=== PATIENT | male | born 1970 | race Caucasian/White ===

== ENCOUNTER → 2017-05-12 16:33 | Outpatient (CLI) | payer BC, SELFPAY ==
[2017-05-12 18:10] LABS: Absolute Lymphocyte Count 1.16 X10^3/ul (0.83-4.51); Absolute Neutrophil Count 1.9 X10^3/uL (2.0-7.7); Basophil# 0.04 X10^3/uL; Basophil% 1.1 % (0-1); Eosinophil# 0.12 X10^3/uL; Eosinophils% 3.4 % (0-5); Hematocrit 38.4 % (40-54); Hemoglobin 12.1 g/dl (13.0-16.5); Lymphocyte # 1.16 X10^3/ul (4.0); Lymphocyte % 33.2 % (19-41); Mean Corp Hgb Conc 31.5 g/gl (32-36); Mean Corpuscular Hgb 26.8 pg (27.0-32.0); Mean Corpuscular Volume 85.1 fL (80-94); Mean Platelet Vol. 9.6 fl (6.2-12.0); Monocyte# 0.27 X10^3/uL; Monocyte% 7.7 % (0-10); Neutrophil % 54.6 % (47-70); Platelet Count 227 K/mm3 (150-450); RBC Distribution Width CV 13.5 % (11.6-14.6); Red Blood Count 4.51 M/mm3 (4.6-6.2); White Blood Count 3.5 K/mm3 (4.4-11.0)
[2017-05-12 18:11] LABS: ALB/GLOB Ratio 1.2 RATIO (0.9-2.4); AST(SGOT) 34 U/L (15-37); Alanine Aminotransfer ALT/SGPT 40 U/L (16-61); Albumin, Serum 3.8 g/dL (3.2-5.0); Alkaline Phosphatase 54 U/L (45-117); Anion Gap 6 (5-15); BUN 9 mg/dL (7-18); BUN/Creat Ratio 8.4 RATIO (10-20); Calcium,Total 8.8 mg/dL (8.5-10.1); Chloride 103 mmol/L (98-107); Creatinine, Serum 1.07 mg/dL (0.70-1.30); EST Glomerular Filtration Rate 79 mL/min (>60); Est Glom Filt Rate - Afr Amer 95 mL/min (>60); Globulin 3.2 g/dL (2.2-4.2); Glucose 90 mg/dL (74-106); Potassium 3.7 mmol/L (3.5-5.1); Sodium Level 138 mmol/L (136-145)
[2017-05-12 18:15] LABS: POSITIVE COUNT NO; POSITIVE DIFFERENTIAL NO; POSITIVE MORPHOLOGY NO
== END ==
PROVIDERS: Family Provider Family Medicine; PCP Family Medicine; Visit Provider Internal Medicine Rheumatology
DX: M06.09 Rheumatoid arthritis without rheumatoid factor, multiple sites (principal); Z79.899 Other long term (current) drug therapy; H35.30 Unspecified macular degeneration; R76.8 Other specified abnormal immunological findings in serum; Z87.11 Personal history of peptic ulcer disease; M21.40 Flat foot [pes planus] (acquired), unspecified foot; Z85.9 Personal history of malignant neoplasm, unspecified
CPT/HCPCS: 36415; 80053; 85025

== ENCOUNTER → 2017-05-14 16:21 | Outpatient (CLI) | payer BC, SELFPAY ==
[2017-05-18 03:06] LABS: QNTFERON TB Ag Minus Nil Value 0.43 IU/mL (.); QNTFERON TB Mitogen Value 5.63 IU/mL (.); QNTFERON TB Nil Value 0.07 IU/mL (.)
[2017-05-18 08:53] LABS: QNTIFERON TB Gold Positive (Negative)
== END ==
PROVIDERS: Family Provider Family Medicine; PCP Family Medicine; Visit Provider Internal Medicine Rheumatology
DX: M06.09 Rheumatoid arthritis without rheumatoid factor, multiple sites (principal); Z79.899 Other long term (current) drug therapy; H35.30 Unspecified macular degeneration; R76.8 Other specified abnormal immunological findings in serum; Z87.11 Personal history of peptic ulcer disease; M21.40 Flat foot [pes planus] (acquired), unspecified foot; Z85.9 Personal history of malignant neoplasm, unspecified
CPT/HCPCS: 36415; 86480

== ENCOUNTER → 2017-08-04 15:52 | Outpatient (CLI) | payer BC, SELFPAY ==
[2017-08-04 17:59] LABS: Absolute Lymphocyte Count 0.98 X10^3/ul (0.83-4.51); Absolute Neutrophil Count 5.3 X10^3/uL (2.0-7.7); Basophil# 0.03 X10^3/uL; Basophil% 0.4 % (0-1); Eosinophil# 0.04 X10^3/uL; Eosinophils% 0.6 % (0-5); Hematocrit 38.3 % (40-54); Hemoglobin 12.3 g/dl (13.0-16.5); Lymphocyte # 0.98 X10^3/ul (4.0); Lymphocyte % 14.1 % (19-41); Mean Corp Hgb Conc 32.1 g/gl (32-36); Mean Corpuscular Hgb 26.6 pg (27.0-32.0); Mean Corpuscular Volume 82.9 fL (80-94); Mean Platelet Vol. 9.2 fl (6.2-12.0); Monocyte# 0.55 X10^3/uL; Monocyte% 7.9 % (0-10); Neutrophil # 5.33 X10^3/uL (2.7-7.7); Neutrophil % 76.9 % (47-70); Platelet Count 250 K/mm3 (150-450); RBC Distribution Width CV 14.5 % (11.6-14.6); RBC Distribution Width SD 43.6 fl (35.1-43.9); Red Blood Count 4.62 M/mm3 (4.6-6.2); White Blood Count 6.9 K/mm3 (4.4-11.0)
[2017-08-04 18:00] LABS: POSITIVE COUNT NO; POSITIVE DIFFERENTIAL NO; POSITIVE MORPHOLOGY NO
[2017-08-04 18:10] LABS: AST(SGOT) 16 U/L (15-37); Alanine Aminotransfer ALT/SGPT 28 U/L (16-61); Albumin, Serum 3.8 g/dL (3.2-5.0); Alkaline Phosphatase 71 U/L (45-117); Anion Gap 6 (5-15); BUN 17 mg/dL (7-18); Calcium,Total 9.2 mg/dL (8.5-10.1); Chloride 105 mmol/L (98-107); Creatinine, Serum 1.06 mg/dL (0.70-1.30); EST Glomerular Filtration Rate 80 mL/min (>60); Est Glom Filt Rate - Afr Amer 96 mL/min (>60); Globulin 3.7 g/dL (2.2-4.2); Glucose 92 mg/dL (74-106); Potassium 3.5 mmol/L (3.5-5.1); Protein, Total 7.5 g/dL (6.4-8.2); Sodium Level 139 mmol/L (136-145)
== END ==
PROVIDERS: Family Provider Family Medicine; PCP Family Medicine; Visit Provider Internal Medicine Rheumatology
DX: M06.09 Rheumatoid arthritis without rheumatoid factor, multiple sites (principal); Z79.899 Other long term (current) drug therapy; H35.30 Unspecified macular degeneration; R76.8 Other specified abnormal immunological findings in serum; Z87.11 Personal history of peptic ulcer disease; M21.40 Flat foot [pes planus] (acquired), unspecified foot; Z85.9 Personal history of malignant neoplasm, unspecified
CPT/HCPCS: 36415; 80053; 85025

== ENCOUNTER → 2017-08-25 07:15 | Outpatient (CLI) | payer BC, SELFPAY ==
--- NOTE | 2017-08-25 07:15 | DT_ITS ---
This patient was seen during an EMR downtime August 25, 2017 - September 01, 2017. This patient may have a combination of paper and electronic documentation or all paper documentation. All documentation is viewable within the e-chart portion of [facility] for each patient visit.
--- NOTE | 2017-08-25 07:30 | MRI_ITS ---
STUDY: MRI RIGHT KNEE REASON FOR EXAM: Male, 46 years old. Pain TECHNIQUE: Standardized fat and water weighted pulse sequences were obtained in all 3 orthogonal planes. COMPARISON: None. FINDINGS: There is a joint effusion (image 7/30 axial T2 fat sat). There is bone marrow edema at the inferomedial patella (image 8/30 axial T2 fat sat). There is bone marrow edema at the lateral aspect of the lateral femoral condyle (image 10/30 axial T2 fat sat). There is bone marrow edema at the lateral aspect of the weightbearing lateral femoral condyle (image 14/30 coronal T2 fat sat). There is slight thickening at the medial patellar retinaculum/medial patella femoral ligament at the patellar attachment (image 9/30 axial T2 fat sat). There is loss of articular cartilage at the patella (image 8/30 axial T2 fat sat). There is focal loss of articular cartilage at the distal femoral trochlear groove at its lateral aspect (image 11/30 axial T2 fat sat). There is hypoplastic distal femoral trochlear groove (image 8/30 axial T2 fat sat). There is mild periligamentous edema at the proximal portion of the medial collateral ligament (image 14/30 coronal T2 fat sat). Normal medial meniscus. Normal lateral meniscus. Normal proximal tibiofibular articulation. Normal lateral collateral (fibular) ligament. Normal popliteus tendon. Normal biceps femoris tendon. Normal anterior cruciate ligament (ACL). Normal posterior cruciate ligament (PCL). Normal quadriceps tendon. Normal patellar tendon. Normal Hoffa's fat pad. 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 as described above Medial collateral ligament sprain Joint effusion Electronically Signed: Mejia Grace MD at 10:19 EDT Tel , Service support ,
== END ==
PROVIDERS: Family Provider Family Medicine; PCP Family Medicine; Visit Provider Orthopaedic Surgery
DX: S83.094A Other dislocation of right patella, initial encounter (principal); S83.411A Sprain of medial collateral ligament of right knee, initial encounter; X58.XXXA Exposure to other specified factors, initial encounter; M17.11 Unilateral primary osteoarthritis, right knee
CPT/HCPCS: 73721

== ENCOUNTER → 2017-09-01 17:42 | Outpatient (CLI) | payer OTHER, BC, SELFPAY ==
--- NOTE | 2017-09-01 17:42 | DT_ITS ---
This patient was seen during an EMR downtime August 25, 2017 - September 01, 2017. This patient may have a combination of paper and electronic documentation or all paper documentation. All documentation is viewable within the e-chart portion of [employer] for each patient visit.
--- NOTE | 2017-09-01 17:50 | RAD_ITS ---
STUDY: X-RAY - RIGHT HAND, ATTENTION THIRD FINGER REASON FOR EXAM: Male, 46 years old. Question injury to third finger. Pain. TECHNIQUE: 3 view(s) of the finger were obtained. COMPARISON: None. FINDINGS: Normal metacarpal head. Normal metacarpophalangeal joint. Normal proximal phalanx. Normal middle phalanx. Normal distal phalanx. Normal proximal interphalangeal joint. Normal distal interphalangeal joint. RAD/Finger(s) Min 2 Views IMPRESSION: No significant abnormality identified. Electronically Signed: Silver Don MD at 13:10 EDT , Service support ,
== END ==
PROVIDERS: Family Provider Family Medicine; PCP Family Medicine; Visit Provider Physician Assistant Surgical
DX: M25.541 Pain in joints of right hand (principal)
CPT/HCPCS: 73140

== ENCOUNTER → 2017-10-08 11:15 | Outpatient (CLI) | payer OTHER, SELFPAY ==
--- NOTE | 2017-10-08 11:26 | MRI_ITS ---
STUDY: MRI RIGHT HAND REASON FOR EXAM: Male, 46 years old. Unable to bend middle finger since cutting injury of distal phalanx. TECHNIQUE: Standardized fat and water weighted pulse sequences were obtained in all 3 orthogonal planes. A tissue marker identifying the area of concern on the volar surface of the third finger at the DIP joint (sagittal series 5 image 18). COMPARISON: X-rays of the fingers dated September 01, 2017 FINDINGS: THIRD DIGIT: There is a complete retracted tear of the flexor digitorum profundus with approximately 2.5 cm of separation of the proximal and distal tendon fragments. There is fluid between the fragments (axial inversion recovery series 8 images A-22, sagittal series 5 images 15-19). There is also thinning of the flexor digitorum superficialis (sagittal series 5 image 18). There is metallic artifact in the superficial subcutaneous soft tissues at the PIP joint probably representing a small metallic fragment (sagittal series 5 image 18). Normal visualized thenar and hypothenar muscles. Normal lumbricalis and interosseous muscles. There are no solid, cystic or lipomatous masses. MRI/Upper Ext/No Jt/ wo IMPRESSION: Full-thickness retracted tear of the flexor digitorum profundus as with fluid between the 2 tendon fragments. Thinning of the flexor digitorum superficialis tendon. Small metallic artifact in the superficial subcutaneous soft tissues at the PIP joint on the volar are aspect of the finger. Electronically Signed: Silver Don MD at 11:06 EDT , Service support ,
== END ==
PROVIDERS: Family Provider Family Medicine; PCP Family Medicine; Visit Provider Physician Assistant Surgical
DX: S60.031A Contusion of right middle finger without damage to nail, initial encounter (principal)
CPT/HCPCS: 73218

== ENCOUNTER 2017-10-08 17:00 | Outpatient (RCR) | payer BC, SELFPAY ==
--- NOTE | 2017-09-26 19:15 | HP.PTEVAL_ITS ---
Patient's Visit Information MICHELLE TOBIAS is a 46 year old M referred to Physical Therapy by Danny Caballero, with a diagnosis of R patellar dislocation. Date of Evaluation: 09/10/17 Physical Therapist: Mushtaq Meyer - Visit Plan Frequency: 2x /Week Duration: 4 Weeks Plan: Start with quad/HS/glute med/Er strengthening in [place] progressing to [place] as tolerated. Cont. with ROM as tolerated. May use modalities as needed. - Subjective Subjective: Pt. is here today for his initial evaluation with diagnosis of R patellar dislocation. Pt. reports a fews ago passing out on the back of his trunk and falling off. He reports he has occassionally suddenly loss conciousness and is seeing a medication reconciliation technician about it now. He has increased pain after wards and had a history of a meniscal tear and throught that this was the case as well. Pt. had MRI and showed no tears. Pt. arrives wearing brace this date with lateral stays. Pt. works and [employer] and is able to complete most activities, but continues to have increased pain with walking, stairs, standing for too long and increased stiffness. Decreased pain: rest, staying off of his leg. Pt. denies N/T, but did have initial edema, now has improved. Pt. reports being better since initial injury, but continues to have issues. Pt. reports no giving out or locking of knee. Pt. is hopeful to increase ROM and strength in order to get back to all recreational activities without issues. - Pain R knee Pain Intensity (Out of 10): 3 Pain Intensity Range: 1, 5 - Objective POSTURE: Pt. has slight wt. shift to L side, lacks R TKE in stance. Pt. has otherwise normal SWATHI and posture. PALPATION: Pt. has increased tenderness to palpation throughout medial joint line and posterior capsule. Pt. has no calf pain with palpation. Pt. has no lateral knee pain. NEUROLOGICAL: Normal senation and DTR bilaterally. Negative homans sign. ROM: R knee AROM- 0-8- 98deg. Increase in symptoms at end ranges. PROM 0-4-103deg Increased pain at end ranges. Pt. gomes tight IT band and HS as well. R worse than L. MMT- RLE- ankle 5/5 throughout; knee- ext 4/5 increase NW, flexion 4/5 increase NW; hip- flexion 4/5, abd 4+/5, ext 4+/5. Core strength- fair-. GAIT: Pt. has antalgic pattern during R stance phase. Pt. has increased R lateral lean during R stance phase. decreased L step length. Pt. lacks TKE during R stance phase and decreased knee flexion during swing phase. STAIRS: pt. complets with step to pattern with loading LLE throughout. - Goals Goal 1:: Pt. to be I with HEP. Goal Time Frame: 4-6 Weeks Goal 2:: Pt. to have R knee ROM 0-0-125deg without increase in symptoms. Goal Time Frame: 4-6 Weeks Goal 3:: Pt. to have increased RLE- quad, HS, glute med and hip ER strength increased by 1/2 grade to increase R knee stability. Goal Time Frame: 4-6 Weeks Goal 4:: Pt. to ambulate without increase in symptoms unlimited distances. Goal Time Frame: 4-6 Weeks Goal 5:: Pt. to negotiate steps with reciprocal pattern without increase in symptoms with 1 HR. Goal Time Frame: 4-6 Weeks Goal 6:: Pt. to resume all work activities without increase in symptoms. Goal Time Frame: 4-6 Weeks - Rehabilitation Potential Physical Therapy Diagnosis: Pt. has signs and symptoms consistent with R patellar dislocation. Pt. had subsequent RLE weakness and hypomobility. Pt. would benefit from PT to increase RLE strength and ROm allowing for return to all recreational activities without limitations. Rehabilitation Potential: Excellent - Anticipated Interventions Patient/Client Instruction: Educate patient on: Condition, Plan of Care, Risk Factors, Benefits of Fitness Program For the Purpose of:: To foster healthy habits, To improve decision making, To facilitate caregiver knowledge, To improve self management, To prevent re-injury , To improve ability to perform tasks related to life management, To improve tolerance to ADL's Therapeutic Exercise to Include: Strength training, Endurance training, Balance training, Coordination, Body mechanics, Postural training, Flexibilty training, Gait and locomotor training, Passive ROM, Active ROM, Dynamic Lumbar Stabilization For the Purpose of:: To decrease pain, To increase ROM, To improve nutrient delivery to tissue, To increase oxygenation perfusion, To improve muscle performance and motor function, To improve ability to perform ADL's, To increase tolerance to activity/condition/position, To improve gait and locomotor functions, To improve health of tissue, To decrease soft tissue restriction, To increase flexibility/ROM, To improve balance Manual Therapy Techniques to Include: Petrissage, Mobilization, Functional dry needling, Soft tissue mobilization For the Purpose of:: To decrease pain, To decrease swelling/inflammation, To increase ROM IF ES: Yes Cryotherapy (ice pack, ice massage): Yes Thermo therapy (hot pack): Yes Ultrasound (thermal/non thermal): Yes For the Purpose of:: To decrease pain, To decrease swelling/inflammation, To increase ROM, To improve nutrient delivery to tissue Thank you for the opportunity to evaluate your patient. For Medicare and Medicare HMO plans, please review the plan of care and approve it. It will need to be FAXED BACK to us at [phone] for Medicare purposes. Please let me know if there are questions or concerns regarding this plan of care. Physician Signature: Date:
--- NOTE | 2017-10-15 10:19 | HP.PTREVAL_ITS ---
Danny Caballero, , It has been my pleasure to treat MICHELLE TOBIAS over the last 4 visits for R patellar dislocation. Please see the progress note below for an update on the physical therapy plan of care! Subjective: Pt. reports my right knee is doing really well, I do not have much issues any more. He reprots being back to work without difficulty, occassional soreness noted. Pt. reports being 90% better overall. Objective/Function: Pt. has full ROM without increase in symptoms of R knee. No clicking or locking noted. MMT- R ankle 5/5 throughout, knee- ext 5-/5, flexion 5-/5; hip- flexion 4+/5, abd 4+/5, ext 4+/5. Pt. is able to ambulate without issues or increase in symptoms. STAIRS: pt. is able to complete with reciprocal pattern without increase in symptoms. Mild L knee soreness with descending. Plan Plan: Pt. is indendent with current HEP for quad strengthening and knee stability exercises. Pt. desires to complete on own at this point in time. I will leave case open for 1 month, if I do not hear from pt during this period I will DC pt. back to physician. Goals Goal 1:: Pt. to be I with HEP. Goal Time Frame: 4-6 Weeks Goal Progress: Goal Met Goal 2:: Pt. to have R knee ROM 0-0-125deg without increase in symptoms. Goal Time Frame: 4-6 Weeks Goal Progress: Goal Met Goal 3:: Pt. to have increased RLE- quad, HS, glute med and hip ER strength increased by 1/2 grade to increase R knee stability. Goal Time Frame: 4-6 Weeks Goal Progress: Goal Met Goal 4:: Pt. to ambulate without increase in symptoms unlimited distances. Goal Time Frame: 4-6 Weeks Goal Progress: Goal Met Goal 5:: Pt. to negotiate steps with reciprocal pattern without increase in symptoms with 1 HR. Goal Time Frame: 4-6 Weeks Goal Progress: Goal Met Goal 6:: Pt. to resume all work activities without increase in symptoms. Goal Time Frame: 4-6 Weeks Goal Progress: Goal Met Anticipated Interventions Patient/Client Instruction: Educate patient on: Condition, Plan of Care, Risk Factors, Benefits of Fitness Program For the Purpose of:: To foster healthy habits, To improve decision making, To facilitate caregiver knowledge, To improve self management, To prevent re-injury , To improve ability to perform tasks related to life management, To improve tolerance to ADL's Therapeutic Exercise to Include: Strength training, Endurance training, Balance training, Coordination, Body mechanics, Postural training, Flexibilty training, Gait and locomotor training, Passive ROM, Active ROM, Dynamic Lumbar Stabilization For the Purpose of:: To decrease pain, To increase ROM, To improve nutrient delivery to tissue, To increase oxygenation perfusion, To improve muscle performance and motor function, To improve ability to perform ADL's, To increase tolerance to activity/condition/position, To improve gait and locomotor functions, To improve health of tissue, To decrease soft tissue restriction, To increase flexibility/ROM, To improve balance Manual Therapy Techniques to Include: Petrissage, Mobilization, Functional dry needling, Soft tissue mobilization For the Purpose of:: To decrease pain, To decrease swelling/inflammation, To increase ROM IF ES: Yes Cryotherapy (ice pack, ice massage): Yes Thermo therapy (hot pack): Yes Ultrasound (thermal/non thermal): Yes For the Purpose of:: To decrease pain, To decrease swelling/inflammation, To increase ROM, To improve nutrient delivery to tissue Please do not hesitate to contact me at [phone] by phone or Fax: if you have questions or concerns regarding this new plan of care! Sincerely, Mushtaq Meyer
--- NOTE | 2018-01-16 08:36 | HP.PTDCNRP_ITS ---
HP - Discharge Summary (1) - Patient Information MICHELLE TOBIAS was seen in my office for initial evaluation on 09/10/17. The following Plan of Care was established for this patient: Initial Frequency: 2x /Week Initial Duration: 4 Weeks - Anticipated Interventions Patient/Client Instruction: Educate patient on: Condition, Plan of Care, Risk Factors, Benefits of Fitness Program For the Purpose of:: To foster healthy habits, To improve decision making, To facilitate caregiver knowledge, To improve self management, To prevent re- injury, To improve ability to perform tasks related to life management, To improve tolerance to ADL's Therapeutic Exercise to Include: Strength training, Endurance training, Balance training, Coordination, Body mechanics, Postural training, Flexibilty training, Gait and locomotor training, Passive ROM, Active ROM, Dynamic Lumbar Stabilization For the Purpose of:: To decrease pain, To increase ROM, To improve nutrient delivery to tissue, To increase oxygenation perfusion, To improve muscle performance and motor function, To improve ability to perform ADL's, To increase tolerance to activity/condition/position, To improve gait and locomotor functions, To improve health of tissue, To decrease soft tissue restriction, To increase flexibility/ROM, To improve balance Manual Therapy Techniques to Include: Petrissage, Mobilization, Functional dry needling, Soft tissue mobilization For the Purpose of:: To decrease pain, To decrease swelling/inflammation, To increase ROM IF ES: Yes Cryotherapy (ice pack, ice massage): Yes Thermo therapy (hot pack): Yes Ultrasound (thermal/non thermal): Yes For the Purpose of:: To decrease pain, To decrease swelling/inflammation, To increase ROM, To improve nutrient delivery to tissue This patient was last seen in our office 10/08/17. Pertinent comments regarding their Physical therapy will appear below: Pt. was seen for his patellar dislocation. Pt. was treated with strengthening and stability exercises. Pt. progressed as expected and was doing very well at our last visit. Pt. has not been seen in 4+ months and will be DC from PT at this point in time. At this point I will be discontinuing this patient from physical therapy. I would be happy to see this patient again in the future if found appropriate by the physician. Thank you! Mushtaq Meyer
== END 2017-10-08 19:00 | disposition home or self-care (01) ==
LOC: PT 17:00
PROVIDERS: Family Provider Family Medicine; PCP Family Medicine; Visit Provider Orthopaedic Surgery
DX: S83.004D Unspecified dislocation of right patella, subsequent encounter (principal)
CPT/HCPCS: 97110; 97161

== ENCOUNTER → 2017-10-09 14:02 | Outpatient (CLI) | payer BC, SELFPAY | PROVIDERS: Family Provider Family Medicine; PCP Family Medicine; Visit Provider Nurse Practitioner Family | DX: R55 Syncope and collapse (principal) | CPT/HCPCS: 93225; 93226 ==

== ENCOUNTER → 2017-11-01 11:17 | Outpatient (CLI) | payer BC, SELFPAY ==
[2017-11-01 12:00] LABS: Absolute Lymphocyte Count 0.82 X10^3/ul (0.83-4.51); Absolute Neutrophil Count 1.9 X10^3/uL (2.0-7.7); Basophil# 0.03 X10^3/uL; Eosinophil# 0.09 X10^3/uL; Hematocrit 35.5 % (40-54); Hemoglobin 11.4 g/dl (13.0-16.5); Lymphocyte # 0.82 X10^3/ul (4.0); Lymphocyte % 27.1 % (19-41); Mean Corp Hgb Conc 32.1 g/gl (32-36); Mean Corpuscular Hgb 27.2 pg (27.0-32.0); Mean Corpuscular Volume 84.7 fL (80-94); Mean Platelet Vol. 9.1 fl (6.2-12.0); Monocyte# 0.22 X10^3/uL; Monocyte% 7.3 % (0-10); Neutrophil # 1.86 X10^3/uL (2.7-7.7); Neutrophil % 61.3 % (47-70); POSITIVE COUNT NO; POSITIVE DIFFERENTIAL NO; POSITIVE MORPHOLOGY NO; Platelet Count 231 K/mm3 (150-450); RBC Distribution Width SD 46.3 fl (35.1-43.9); Red Blood Count 4.19 M/mm3 (4.6-6.2)
[2017-11-01 12:25] LABS: ALB/GLOB Ratio 1.1 RATIO (0.9-2.4); AST(SGOT) 22 U/L (15-37); Alanine Aminotransfer ALT/SGPT 27 U/L (16-61); Albumin, Serum 3.5 g/dL (3.2-5.0); Alkaline Phosphatase 58 U/L (45-117); Anion Gap 10 (5-15); BUN 15 mg/dL (7-18); BUN/Creat Ratio 12.8 RATIO (10-20); Calcium,Total 8.5 mg/dL (8.5-10.1); Chloride 107 mmol/L (98-107); Creatinine, Serum 1.17 mg/dL (0.70-1.30); EST Glomerular Filtration Rate 71 mL/min (>60); Est Glom Filt Rate - Afr Amer 86 mL/min (>60); Globulin 3.1 g/dL (2.2-4.2); Glucose 115 mg/dL (74-106); Potassium 3.7 mmol/L (3.5-5.1); Protein, Total 6.6 g/dL (6.4-8.2); Sodium Level 143 mmol/L (136-145)
== END ==
PROVIDERS: Family Provider Family Medicine; PCP Family Medicine; Visit Provider Internal Medicine Rheumatology
DX: M06.09 Rheumatoid arthritis without rheumatoid factor, multiple sites (principal); Z79.899 Other long term (current) drug therapy; H35.30 Unspecified macular degeneration; R76.8 Other specified abnormal immunological findings in serum
CPT/HCPCS: 36415; 80053; 85025

== ENCOUNTER → 2018-01-29 14:28 | Outpatient (CLI) | payer BC, SELFPAY ==
[2018-01-29 16:07] LABS: Absolute Lymphocyte Count 1.16 X10^3/ul (0.83-4.51); Absolute Neutrophil Count 2.2 X10^3/uL (2.0-7.7); Basophil# 0.02 X10^3/uL; Basophil% 0.5 % (0-1); Eosinophil# 0.12 X10^3/uL; Eosinophils% 3.1 % (0-5); Hematocrit 40.3 % (40-54); Hemoglobin 12.9 g/dl (13.0-16.5); Lymphocyte # 1.16 X10^3/ul (4.0); Mean Corpuscular Hgb 27.3 pg (27.0-32.0); Mean Corpuscular Volume 85.2 fL (80-94); Mean Platelet Vol. 9.4 fl (6.2-12.0); Monocyte# 0.34 X10^3/uL; Monocyte% 8.8 % (0-10); Neutrophil # 2.22 X10^3/uL (2.7-7.7); Neutrophil % 57.3 % (47-70); Platelet Count 264 K/mm3 (150-450); RBC Distribution Width CV 13.6 % (11.6-14.6); RBC Distribution Width SD 41.6 fl (35.1-43.9); Red Blood Count 4.73 M/mm3 (4.6-6.2); White Blood Count 3.9 K/mm3 (4.4-11.0)
[2018-01-29 16:18] LABS: ALB/GLOB Ratio 0.9 RATIO (0.9-2.4); AST(SGOT) 15 U/L (15-37); Alanine Aminotransfer ALT/SGPT 25 U/L (16-61); Albumin, Serum 3.4 g/dL (3.2-5.0); Alkaline Phosphatase 71 U/L (45-117); Anion Gap 9 (5-15); BUN 13 mg/dL (7-18); BUN/Creat Ratio 10.1 RATIO (10-20); Calcium,Total 8.4 mg/dL (8.5-10.1); Chloride 108 mmol/L (98-107); Creatinine, Serum 1.29 mg/dL (0.70-1.30); EST Glomerular Filtration Rate 63 mL/min (>60); Est Glom Filt Rate - Afr Amer 77 mL/min (>60); Globulin 3.6 g/dL (2.2-4.2); Glucose 97 mg/dL (74-106); Potassium 4.2 mmol/L (3.5-5.1); Sodium Level 143 mmol/L (136-145)
[2018-01-29 16:21] LABS: POSITIVE COUNT NO; POSITIVE DIFFERENTIAL NO; POSITIVE MORPHOLOGY NO
== END ==
PROVIDERS: Family Provider Family Medicine; PCP Family Medicine; Referring Provider Internal Medicine Rheumatology; Visit Provider Internal Medicine Rheumatology
DX: M06.09 Rheumatoid arthritis without rheumatoid factor, multiple sites (principal); Z79.899 Other long term (current) drug therapy; H35.30 Unspecified macular degeneration; R76.8 Other specified abnormal immunological findings in serum; Z87.11 Personal history of peptic ulcer disease; M21.40 Flat foot [pes planus] (acquired), unspecified foot; Z85.9 Personal history of malignant neoplasm, unspecified
CPT/HCPCS: 36415; 80053; 85025

== ENCOUNTER → 2018-04-10 14:35 | Outpatient (CLI) | payer BC, SELFPAY ==
[2018-04-10 16:23] LABS: Absolute Lymphocyte Count 1.19 X10^3/ul (0.83-4.51); Absolute Neutrophil Count 2.9 X10^3/uL (2.0-7.7); Basophil# 0.03 X10^3/uL; Basophil% 0.6 % (0-1); Eosinophil# 0.15 X10^3/uL; Eosinophils% 3.1 % (0-5); Hematocrit 41.5 % (40-54); Hemoglobin 12.9 g/dl (13.0-16.5); Lymphocyte # 1.19 X10^3/ul (4.0); Lymphocyte % 24.7 % (19-41); Mean Corp Hgb Conc 31.1 g/gl (32-36); Mean Corpuscular Hgb 26.8 pg (27.0-32.0); Mean Corpuscular Volume 86.3 fL (80-94); Mean Platelet Vol. 9.5 fl (6.2-12.0); Monocyte# 0.49 X10^3/uL; Monocyte% 10.2 % (0-10); Neutrophil # 2.94 X10^3/uL (2.7-7.7); Neutrophil % 61.2 % (47-70); Platelet Count 287 K/mm3 (150-450); RBC Distribution Width CV 14.8 % (11.6-14.6); RBC Distribution Width SD 46.6 fl (35.1-43.9); Red Blood Count 4.81 M/mm3 (4.6-6.2); White Blood Count 4.8 K/mm3 (4.4-11.0)
[2018-04-10 16:27] LABS: POSITIVE COUNT NO; POSITIVE DIFFERENTIAL NO; POSITIVE MORPHOLOGY NO
[2018-04-10 16:35] LABS: Albumin, Serum 3.7 g/dL (3.2-5.0); BUN 13 mg/dL (7-18); BUN/Creat Ratio 10.7 RATIO (10-20); Creatinine, Serum 1.22 mg/dL (0.70-1.30); EST Glomerular Filtration Rate 68 mL/min (>60); Est Glom Filt Rate - Afr Amer 82 mL/min (>60); Globulin 3.3 g/dL (2.2-4.2); Glucose 107 mg/dL (74-106)
[2018-04-10 16:36] LABS: ALB/GLOB Ratio 1.1 RATIO (0.9-2.4); AST(SGOT) 13 U/L (15-37); Alanine Aminotransfer ALT/SGPT 27 U/L (16-61); Alkaline Phosphatase 65 U/L (45-117); Anion Gap 8 (5-15); Calcium,Total 8.9 mg/dL (8.5-10.1); Chloride 105 mmol/L (98-107); Sodium Level 141 mmol/L (136-145)
--- OUTSIDE RECORDS SUMMARY | 2018-06-15 04:56 | XMS RPT_ITS ---
:1970 Author Organization [employer] Address [address] [place] [address] Phone Care Team Providers Name Role Phone Braxton SCHUSTER, Foster Hutchinson Unavailable Reason for Visit Reason For Visit Description Start Date Postop - subsequent visit Preliminary reason for visit data, not yet signed by the author as of right middle finger post One-stage FDP zone 2 reconstruction with palmaris longus with tendon harvest; FDS Synovectomy; Excision of FDP tendon on 11/28/2017 Preliminary reason for visit data, not yet signed by the author as of Chief Complaint Chief Complaint Description Start Date right middle finger post One-stage FDP zone 2 reconstruction with palmaris longus with tendon harvest; FDS Synovectomy; Excision of FDP tendon on 11/28/2017 Preliminary chief complaint data, not yet signed by the author as of Instructions No information available. Plan of Care Type Date Detail Appointment 11:30 AM Foster Limon MD, [address] [facility], [place], [address], Appointment 03:45 PM Foster Limon MD, [address] [facility], [facility], [place], [address], Medications Medication Instructions Start Stop Generic Name NDC Provider Date Date AMITRIPTYLINE 1/2 tablet at / AMITRIPTYLINE 65910813520 Latia HCL 50 MG TABS bedtime 23 HCL Lomax SPRAY PAINTER SUMATRIPTAN 1 tablet daily / SUMATRIPTAN 05326622214 Latia SUCCINATE 100 MG as needed for 23 SUCCINATE Lomax SPRAY PAINTER TABS migraines OMEPRAZOLE 40 MG 1 capsule daily / OMEPRAZOLE 99868142370 Latia CPDR 23 Lomax SPRAY PAINTER LEUCOVORIN 1 tablet weekly / LEUCOVORIN 19507933634 Latia CALCIUM 15 MG 23 CALCIUM Lomax SPRAY PAINTER TABS FOLIC ACID 1 MG 2 tablets daily / FOLIC ACID 22058684340 Latia TABS 23 Lomax SPRAY PAINTER ORENCIA 125 1 injection / ABATACEPT 48711669781 Latia MG/ML SOSY weekly 23 Lomax SPRAY PAINTER METHOTREXATE 7.5ml injection / METHOTREXATE 81154416112 Latia SODIUM 50 MG/2ML weekly 23 SODIUM Lomax SPRAY PAINTER SOLN Conditions or Problems Problem Problem Onset Status Entry Provider Comment Standard Annotate Name Code Date Date Description Crushing 24733090 Active Foster Z Crushing injury middle injury of (SNOMED CT) 10/13 10/13 Stachowicz of finger finger finger of MD right hand Injury of 662048011 Active Foster Z Injury of flexor flexor (SNOMED CT) 10/13 10/13 Stachowicz flexor tendon digitorum tendon of MD of hand profundus right hand of right midle finger Dislocation 190303351 Active Danny Obrien Closed of patella, (SNOMED CT) 09/04 09/04 Ada SCHUSTER traumatic right, dislocation of closed patellofemoral joint Risk for 823825648 Active Danny Obrien At risk for falls (SNOMED CT) 08/14 08/14 Ada SCHUSTER falls Closed head 87688124596 Active Danny Obrien Closed injury injury 6 (SNOMED 08/14 08/14 Ada SCHUSTER of head CT) Arthritis 495209735 Active Danny Obrien Arthritis of of right (SNOMED CT) 08/14 08/14 Ada SCHUSTER knee knee Rheumatoid 96561375 Active Danny Obrien Rheumatoid arthritis (SNOMED CT) 08/14 08/14 Ada SCHUSTER arthritis Tear of 066606237 Active Danny Obrien Tear of medial medial (SNOMED CT) 08/14 08/14 Ada SCHUSTER meniscus of meniscus of knee right knee Allergies, Adverse Reactions, Alerts Allergy Name Reaction Start Date Severity Status Provider Description ASPIRIN Critical Active Foster HAZEL rash Critical Active Latia Lomax SPRAY PAINTER SULFA rash Critical Active Latia Lomax SPRAY PAINTER Social History Concept Description Observation Name Observation Value Units Start Date Employment detail 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 Preliminary social history data, not yet signed by the author as of Vital Signs Date Name Value Unit Description BMI (Body Mass 25.45 kg/m2 Body Mass Index Index) [Ratio] Preliminary vital sign data, not yet signed by the author as of BP Diastolic 87 mm[Hg] blood pressure, diastolic Preliminary vital sign data, not yet signed by the author as of BP Diastolic 93 mm[Hg] blood pressure, diastolic, second observation Preliminary vital sign data, not yet signed by the author as of BP Systolic 143 mm[Hg] blood pressure, systolic Preliminary vital sign data, not yet signed by the author as of BP Systolic 139 mm[Hg] blood pressure, systolic, second observation Preliminary vital sign data, not yet signed by the author as of Heart Rate 101 /min pulse rate E&M Preliminary vital sign data, not yet signed by the author as of Height 72 [in_us] height E&M Preliminary vital sign data, not yet signed by the author as of Height 183 cm height in centimeters E&M Preliminary vital sign data, not yet signed by the author as of Weight Measured 187 [lb_av] weight E&M Preliminary vital sign data, not yet signed by the author as of Weight Measured 85 kg weight in kilograms E&M Preliminary vital sign data, not yet signed by the author as of Results Date Name Value Unit Range Flag Description Office Visit: Postop - subsequent visit, Rm: 7 MEDS REVIEW Done Documentation of current medications (procedure) Preliminary observation data, not yet signed by the author as of Preliminary observation data, not yet signed by the author as of Clinical Summary: HMSPatientID SOP account number Procedures Code Procedure Name Date Entry Date CPT-04444 Occupational Therapy G8730 Pain assessment documented as positive - follow-up documented G8427 Current medications documented 1036F Tobacco screening was negative - non user G8419 BMI outside of normal parameters - no follow-up plan/reason not given G8952 Blood pressure outside of normal parameters - follow-up not documented [facility]-[id number] Patient Encounter Medications Administered No information available. Immunizations No information available. Advance Directives There may be information available, but it has not been provided by the sender. Assessments There may be information available, but it has not been provided by the sender. Review of Systems There may be information available, but it has not been provided by the sender. Family History There may be information available, but it has not been provided by the sender. History of Past Illness There may be information available, but it has not been provided by the sender. History of Present Illness There may be information available, but it has not been provided by the sender.
--- OUTSIDE RECORDS SUMMARY | 2018-06-15 04:56 | XMS RPT_ITS ---
:1970 Author Organization [employer] Address [facility] [place] [address] Phone Care Team Providers Name Role Phone Braxton SCHUSTER, Foster Hutchinson Unavailable Reason for Visit Reason For Visit Description Start Date Postop - subsequent visit Preliminary reason for visit data, not yet signed by the author as of right hand post One-stage FDP zone 2 reconstruction with palmaris longus with tendon harvest; FDS Synovectomy; Excision of FDP tendon on 11/28/2017 Preliminary reason for visit data, not yet signed by the author as of Chief Complaint Chief Complaint Description Start Date right hand post One-stage FDP zone 2 reconstruction with palmaris longus with tendon harvest; FDS Synovectomy; Excision of FDP tendon on 11/28/2017 Preliminary chief complaint data, not yet signed by the author as of Instructions Instruction Description Start Date Patient advised to follow-up with Primary Care Physician for BMI management. Plan of Care Type Date Detail Appointment 09:45 AM Foster Limon MD, [address] [facility], [email or web address], [place], [address], Appointment 11:30 AM Foster Limon MD, [address] [facility], [email or web address], [place], [address], Patient education \cps-sql1\CPS_PtEducation\CDC_ FALL_PREVENTION.pdf Medications Medication Instructions Start Stop Generic Name NDC Provider Date Date PREDNISONE 10 MG take as PREDNISONE [id number] Foster Z TABS directed 08 Braxton SCHUSTER AMITRIPTYLINE 1/2 tablet at / AMITRIPTYLINE 06228921428 Latia Lomax HCL 50 MG TABS bedtime 23 HCL GAS CONTROLLER SUMATRIPTAN 1 tablet daily / SUMATRIPTAN 77632062863 Latia Lomax SUCCINATE 100 MG as needed for 23 SUCCINATE GAS CONTROLLER TABS migraines OMEPRAZOLE 40 MG 1 capsule daily / OMEPRAZOLE 56418744678 Latia Lomax CPDR 23 GAS CONTROLLER LEUCOVORIN 1 tablet weekly / LEUCOVORIN 36106177084 Latia Lomax CALCIUM 15 MG 23 CALCIUM GAS CONTROLLER TABS FOLIC ACID 1 MG 2 tablets daily / FOLIC ACID 09620398103 Latia Lomax TABS 23 GAS CONTROLLER ORENCIA 125 1 injection / ABATACEPT 39504561530 Latia Lomax MG/ML SOSY weekly 23 GAS CONTROLLER METHOTREXATE 7.5ml injection / METHOTREXATE 16736289401 Latia Lomax SODIUM 50 MG/2ML weekly 23 SODIUM GAS CONTROLLER SOLN Conditions or Problems Problem Problem Onset Status Entry Provider Comment Standard Annotate Name Code Date Date Description Crushing 06697553 Active Foster Z Crushing injury middle injury of (SNOMED CT) 10/13 10/13 Braxton of finger finger finger of MD right hand Injury of 696153609 Active Foster Z Injury of flexor flexor (SNOMED CT) 10/13 10/13 Starosemary flexor tendon digitorum tendon of of hand profundus right hand of right midle finger Dislocation 004672024 Active Danny Obrien Closed of patella, (SNOMED CT) 09/04 09/04 Ada SCHUSTER traumatic right, dislocation of closed patellofemoral joint Risk for 939197642 Active Danny Obrien At risk for falls (SNOMED CT) 08/14 08/14 Ada SCHUSTER falls Closed head 55416634210 Active Danny Obrien Closed injury injury 6 (SNOMED 08/14 08/14 Ada SCHUSTER of head CT) Arthritis 391382780 Active Danny Obrien Arthritis of of right (SNOMED CT) 08/14 08/14 Ada SCHUSTER knee knee Rheumatoid 40443491 Active Danny Obrien Rheumatoid arthritis (SNOMED CT) 08/14 08/14 Ada SCHUSTER arthritis Tear of 117416565 Active Danny R Tear of medial medial (SNOMED CT) 08/14 08/14 Ada SCHUSTER meniscus of meniscus of knee right knee Allergies, Adverse Reactions, Alerts Allergy Name Reaction Start Date Severity Status Provider Description SEPTRA rash Critical Active Latia Lomax GAS CONTROLLER SULFA rash Critical Active Latia Lomax GAS CONTROLLER Social History Concept Description Observation Name Observation Value Units Start Date Employment 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 Preliminary social history data, not yet signed by the author as of Vital Signs Date Name Value Unit Description BMI (Body Mass 25.45 kg/m2 Body Mass Index Index) [Ratio] Preliminary vital sign data, not yet signed by the author as of BP Diastolic 87 mm[Hg] blood pressure, diastolic Preliminary vital sign data, not yet signed by the author as of BP Systolic 132 mm[Hg] blood pressure, systolic Preliminary vital sign data, not yet signed by the author as of Heart Rate 90 /min pulse rate E&M Preliminary vital sign [...] Office Visit: Postop - subsequent visit, Rm: 6 MEDS REVIEW Done Documentation of current medications (procedure) Preliminary observation data, not yet signed by the author as of Preliminary observation data, not yet signed by the author as of Clinical Summary: HMSPatientID SOP account number Procedures Code Procedure Name Date Entry Date CPT-05258 Occupational Therapy G8731 Pain assessment documented as negative - follow-up not required G8427 Current medications documented 1036F Tobacco screening was negative - non user G8417 BMI documented as above normal parameters - follow-up documented G8783 Blood pressure within normal parameters - no follow-up required [facility]-[id number] Patient Encounter Medications Administered No information available. [...]
--- OUTSIDE RECORDS SUMMARY | 2018-06-15 04:56 | XMS RPT_ITS ---
:1970 Author Organization [employer] Address [facility] [place] [address] Phone Care Team Providers Name Role Phone Braxton SCHUSTER, Foster Hutchinson Unavailable Reason for Visit Reason For Visit Description Start Date Test Result Preliminary reason for visit data, not yet signed by the author as of right hand pain Preliminary reason for visit data, not yet signed by the author as of Chief Complaint Chief Complaint Description Start Date right hand pain Preliminary chief complaint data, not yet signed by the author as of Instructions Instruction Description Start Date Please follow-up with Primary Care Physician or Grey Percher for treatment or adjustment of medication regarding elevated blood pressure.Patient advised to follow-up with Primary Care Physician for BMI management. Plan of Care Type Date Detail Appointment 03:30 PM Foster Limon MD, [address] [place] [address], [address], Patient education \cps-sql1\CPS_PtEducation\CDC_ FALL_PREVENTION.pdf, \cps-sql1\CPS_PtEducation\htn. pdf Medications Medication Instructions Start Stop Generic Name NDC Provider Date Date AMITRIPTYLINE 1/2 tablet at / AMITRIPTYLINE 96861238486 Latia HCL 50 MG TABS bedtime 23 HCL Lomax BENEFITS CONSULTANT SUMATRIPTAN 1 tablet daily / SUMATRIPTAN 60643890484 Latia SUCCINATE 100 MG as needed for 23 SUCCINATE Lomax BENEFITS CONSULTANT TABS migraines OMEPRAZOLE 40 MG 1 capsule daily / OMEPRAZOLE 77902420935 Latia CPDR 23 Lomax BENEFITS CONSULTANT LEUCOVORIN 1 tablet weekly / LEUCOVORIN 75927422839 Latia CALCIUM 15 MG 23 CALCIUM Lomax BENEFITS CONSULTANT TABS FOLIC ACID 1 MG 2 tablets daily / FOLIC ACID 01615628327 Latia TABS 23 Lomax BENEFITS CONSULTANT METHOTREXATE 7.5ml injection / METHOTREXATE 57521464919 Latia SODIUM 50 MG/2ML weekly 23 SODIUM Lomax BENEFITS CONSULTANT SOLN Conditions or Problems Problem Problem Onset Status Entry Provider Comment Standard Annotate Name Code Date Date Description Crushing 25653712 Active Foster Hutchinson Crushing injury middle injury of (SNOMED CT) 10/13 10/13 Stachotyshawn of finger finger finger of MD right hand Injury of 302644669 Active Foster Z Injury of flexor flexor (SNOMED CT) 10/13 10/13 Stachowicz flexor tendon digitorum tendon of MD of hand profundus right hand of right midle finger Dislocation 237196023 Active Danny Obrien Closed of patella, (SNOMED CT) 09/04 09/04 Ada SCHUSTER traumatic right, dislocation of closed patellofemoral joint Risk for 897986648 Active Danny Obrien At risk for falls (SNOMED CT) 08/14 08/14 Ada SCHUSTER falls Closed head 42865146743 Active Danny Obrien Closed injury injury 6 (SNOMED 08/14 08/14 Ada SCHUSTER of head CT) Arthritis 649032443 Active Danny Obrien Arthritis of of right (SNOMED CT) 08/14 08/14 Ada SCHUSTER knee knee Rheumatoid 66899377 Active Danny Obrien Rheumatoid arthritis (SNOMED CT) 08/14 08/14 Ada SCHUSTER arthritis Tear of 924751170 Active Danny Obrien Tear of medial medial (SNOMED CT) 08/14 08/14 Ada SCHUSTER meniscus of meniscus of knee right knee Allergies, Adverse Reactions, Alerts Allergy Name Reaction Start Date Severity Status Provider Description ASPIRIN Critical Active Foster Limon MD SEPTRA rash Critical Active Latia Lomax BENEFITS CONSULTANT SULFA rash Critical Active Latia Lomax BENEFITS CONSULTANT Social History No information available. Vital Signs Date Name Value Unit Description BMI (Body Mass 25.45 kg/m2 Body Mass Index Index) [Ratio] Preliminary vital sign data, not yet signed by the author as of BP Diastolic 91 mm[Hg] blood pressure, diastolic Preliminary vital sign data, not yet signed by the author as of BP Diastolic 91 mm[Hg] blood pressure, diastolic, second observation Preliminary vital sign data, not yet signed by the author as of BP Systolic 141 mm[Hg] blood pressure, systolic Preliminary vital sign data, not yet signed by the author as of BP Systolic 147 mm[Hg] blood pressure, systolic, second observation Preliminary [...] Value Unit Range Flag Description Office Visit: Test Result, Rm: cast MEDS REVIEW Done Documentation of current medications (procedure) Preliminary observation data, not yet signed by the author as of Preliminary observation data, not yet signed by the author as of MRI HX of the Right Hand MRI (magnetic on 02/24/2018 at [facility] imaging) history Preliminary observation data, not yet signed by the author as of Clinical Summary: HMSPatientID WOP account number Procedures Code Procedure Name Date Entry Date G8731 Pain assessment documented as negative - follow-up not required G8427 Current medications documented 1036F Tobacco screening was negative - non user G8417 BMI documented as above normal parameters - follow-up documented G8950 Blood pressure outside of normal parameters - follow-up documented [facility]-[id number] Patient Encounter Medications Administered No information available. [...]
--- OUTSIDE RECORDS SUMMARY | 2018-06-15 04:56 | XMS RPT_ITS ---
:1970 Author Organization [employer] Address [address] [place] [address] Phone Care Team Providers Name Role Phone Jessica Kent PA-C Unavailable Reason for Visit Reason For Visit Description Start Date Postop - 1st visit Preliminary reason for visit data, not yet signed by the author as of right middle finger post Lysis of adhesion of the Flexor digitorum superficialis and Flexor digiti profundus tendons in the palm and finger of the right hand. on 03/31/2018 Preliminary reason for visit data, not yet signed by the author as of Chief Complaint Chief Complaint Description Start Date right middle finger post Lysis of adhesion of the Flexor digitorum superficialis and Flexor digiti profundus tendons in the palm and finger of the right hand. on 03/31/2018 Preliminary chief complaint data, not yet signed by the author as of Instructions Instruction Description Start Date Please follow-up with Primary Care Physician or Assembler [employer] for treatment or adjustment of medication regarding elevated blood pressure.Patient advised to follow-up with Primary Care Physician for BMI management. Plan of Care Type Date Detail Appointment 10:00 AM Foster Limon MD, [address] [facility], [place], [address], Patient education \cps-sql1\CPS_PtEducation\CDC_ FALL_PREVENTION.pdf, \cps-sql1\CPS_PtEducation\htn. pdf, \cps-sql1\CPS_PtEducation\htn. pdf Medications Medication Instructions Start Stop Generic Name NDC Provider Date Date AMITRIPTYLINE 1/2 tablet at 2018/05/ AMITRIPTYLINE [id number] Latia HCL 50 MG TABS bedtime 23 HCL Lomax ELECTRICAL DESIGN TECHNOLOGIST SUMATRIPTAN 1 tablet daily / SUMATRIPTAN 77954465214 [place] SUCCINATE 100 MG as needed for 23 SUCCINATE Lomax ELECTRICAL DESIGN TECHNOLOGIST TABS migraines OMEPRAZOLE 40 MG 1 capsule daily / OMEPRAZOLE 37396158112 Latia CPDR 23 Lomax ELECTRICAL DESIGN TECHNOLOGIST LEUCOVORIN 1 tablet weekly / LEUCOVORIN 49536156043 Latia CALCIUM 15 MG 23 CALCIUM Lomax ELECTRICAL DESIGN TECHNOLOGIST TABS FOLIC ACID 1 MG 2 tablets daily / FOLIC ACID 84149904464 Latia TABS 23 Lomax ELECTRICAL DESIGN TECHNOLOGIST METHOTREXATE 7.5ml injection / METHOTREXATE 97270563916 Latia SODIUM 50 MG/2ML weekly 23 SODIUM Lomax ELECTRICAL DESIGN TECHNOLOGIST SOLN Conditions or Problems Problem Problem Onset Status Entry Provider Comment Standard Annotate Name Code Date Date Description Crushing 97348522 Active Foster Z Crushing injury middle injury of (SNOMED CT) 10/13 10/13 Stachowicz of finger finger finger of MD right hand Injury of 609856340 Active Foster Z Injury of flexor flexor (SNOMED CT) 10/13 10/13 Stachowicz flexor tendon digitorum tendon of MD of hand profundus right hand of right midle finger Dislocation 627258439 Active Danny Obrien Closed of patella, (SNOMED CT) 09/04 09/04 Ada SCHUSTER traumatic right, dislocation of closed patellofemoral joint Risk for 496503405 Active Danny Obrien At risk for falls (SNOMED CT) 08/14 08/14 Ada SCHUSTER falls Closed head 53155465515 Active Danny Obrien Closed injury injury 6 (SNOMED 08/14 08/14 Ada SCHUSTER of head CT) Arthritis 184332930 Active Danny Obrien Arthritis of of right (SNOMED CT) 08/14 08/14 Ada SCHUSTER knee knee Rheumatoid 43948754 Active Danny Obrien Rheumatoid arthritis (SNOMED CT) 08/14 08/14 Ada SCHUSTER arthritis Tear of 379280132 Active Danny Obrien Tear of medial medial (SNOMED CT) 08/14 08/14 Ada SCHUSTER meniscus of meniscus of knee right knee Allergies, Adverse Reactions, Alerts Allergy Name Reaction Start Date Severity Status Provider Description ASPIRIN Critical Active Foster HAZEL rash Critical Active Latia Lomax ELECTRICAL DESIGN TECHNOLOGIST SULFA rash Critical Active Latia Lomax ELECTRICAL DESIGN TECHNOLOGIST Social History Concept Description Observation Name Observation Value Units Start Date Employment detail OCCUPATION#1 [employer] Preliminary social history data, not yet signed by the author as of Vital Signs Date Name Value Unit Description BMI (Body Mass 25.45 kg/m2 Body Mass Index Index) [Ratio] Preliminary vital sign data, not yet signed by the author as of BP Diastolic 97 mm[Hg] blood pressure, diastolic Preliminary vital sign data, not yet signed by the author as of BP Diastolic 96 mm[Hg] blood pressure, diastolic, second observation Preliminary vital sign data, not yet signed by the author as of BP Systolic 133 mm[Hg] blood pressure, systolic Preliminary vital sign data, not yet signed by the author as of BP Systolic 143 mm[Hg] blood pressure, systolic, second observation Preliminary vital sign data, not yet signed by the author as of Heart Rate 87 /min pulse rate E&M Preliminary vital sign [...] Range Flag Description Office Visit: Postop - 1st visit, Rm: MEDS REVIEW Done Documentation of current medications (procedure) Preliminary observation data, not yet signed by the author as of Preliminary observation data, not yet signed by the author as of Clinical Summary: HMSPatientID SOP account number Procedures Code Procedure Name Date Entry Date G8730 Pain assessment documented as positive - follow-up documented G8427 Current medications documented 1036F Tobacco screening was negative - non user G8417 BMI documented as above normal parameters - follow-up documented G8950 Blood pressure outside of normal parameters - follow-up documented [id number] Patient Encounter Medications Administered No information available. [...]
--- OUTSIDE RECORDS SUMMARY | 2018-06-15 04:56 | XMS RPT_ITS ---
:12/04/1954 Author Organization [employer] Address [address] [place] [address] Phone Care Team Providers Name Role Phone Kaia SCHUSTER, Adam Yepez Unavailable Reason for Visit Reason For Visit Description Start Date Injection - scheduled Preliminary reason for visit data, not yet signed by the author as of left knee pain Preliminary reason for visit data, not yet signed by the author as of Chief Complaint Chief Complaint Description Start Date left knee pain Preliminary chief complaint data, not yet signed by the author as of Instructions Instruction Description Start Date Patient advised to follow-up with Primary Care Physician for BMI management. Plan of Care Type Date Detail Appointment 01:15 PM Adam Marti MD, [address] [facility], [place], [address], Medications Medication Instructions Start Stop Generic Name NDC Provider Date Date MEVACOR TABS one tablet by LOVASTATIN TABS 83806338100 Adam Yepez mouth daily Kaia SCHUSTER PENNSAID 2 % Apply two (2) DICLOFENAC 85180138396 Adam Yepez SOLN pumps to SODIUM Kaia affected are twice daily AMOXICILLIN 500 take 4 tablets AMOXICILLIN 07581381882 Adam Yepez MG CAPS by mouth one Kaia hour prior to dental procedure ALPRAZOLAM 0.25 one tablet ALPRAZOLAM 00650562167 Adam Yepez MG TABS three times a Kaia day as needed for anxiety ZOLPIDEM one tablet a ZOLPIDEM 69387751187 Adam Yepez TARTRATE 5 MG day TARTRATE Kaia WRAY MD IBUPROFEN 200 MG 4 tablets daily IBUPROFEN 09861713823 Latia Lomax TABS / COMMERCIAL LINES ACCOUNT EXECUTIVE LEVOTHYROXINE 1 tablet daily LEVOTHYROXINE 82301696832 Latia Lomax SODIUM 175 MCG / SODIUM COMMERCIAL LINES ACCOUNT EXECUTIVE TABS Conditions or Problems Problem Problem Onset Status Entry Provider Comment Standard Annotate Name Code Date Date Description Greater 7690416 Active Adam Yepez Trochanteric trochanteri (SNOMED CT) Kaia bursitis c bursitis of right hip Greater 7741726 Active Adam Yepez Trochanteric trochanteri (SNOMED CT) 11/12 11/12 Kaia bursitis c bursitis of left hip Status post 40331170211 Active Diane 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 10/27 10/27 Eyad'Addis PA-C total knee knee CT) arthroplasty replacement Bilateral Active Petra A Primary primary (SNOMED CT) 09/02 09/02 [place] gonarthrosis, 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 Vital Signs Date Name Value Unit Description BMI (Body Mass 45.51 kg/m2 Body Mass Index Index) [Ratio] Preliminary vital sign data, not yet signed by the author as of BP Diastolic 73 mm[Hg] blood pressure, diastolic Preliminary vital sign data, not yet signed by the author as of BP Systolic 107 mm[Hg] blood pressure, systolic Preliminary vital sign data, not yet signed by the author as of Heart Rate 96 /min pulse rate E&M Preliminary vital sign data, not yet signed by the author as of Height 61 [in_us] height E&M Preliminary vital sign data, not yet signed by the author as of Height 155 cm height in centimeters E&M Preliminary vital sign data, not yet signed by the author as of Weight Measured 240 [lb_av] weight E&M Preliminary vital sign data, not yet signed by the author as of Weight Measured 109 kg weight in kilograms E&M Preliminary vital sign data, not yet signed by the author as of Results Date Name Value Unit Range Flag Description Office Visit: Injection - scheduled, Rm: 1 MEDS REVIEW Done Documentation of current medications (procedure) Preliminary observation data, not yet signed by the author as of Preliminary observation data, not yet signed by the author as of Clinical Summary: HMSPatientID OOP account number Procedures Code Procedure Name Date Entry Date CPT-30032 Major Joint or Bursa injection/aspiration - Left CPT-J7325 Hyaluronan or derivative - synvisc or synvisc-one G8730 Pain assessment documented as positive - follow-up documented G8427 Current medications documented [id number] Tobacco screening or cessation counseling not performed - unknown reason G8417 BMI documented as above normal parameters - follow-up documented G8783 Blood pressure within normal parameters - no follow-up required 1006F Osteoarthritis symptoms and functional status assessed [facility]-[id number] Patient Encounter Medications Administered No information available. [...]
--- OUTSIDE RECORDS SUMMARY | 2018-06-15 04:57 | XMS RPT_ITS ---
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 (MOWSTR) LATAMICHELLE HARRIS ([id number]) 1970 M Date Time Provider Department 11/20/17 3:30 PM NURSE CARD ADMIN [facility] During your visit today, we recorded the following information about you: Merry Abbasi MA 12/08/2017 10:54 AM Signed EKG completed and given to Dr Herzog for review. Merry Abbasi MA Referring Provider: ANTONIO HERZOG [[id number]] Allergies As of Date: 11/20/2017 Noted Allergy Reaction SEPTRA (SULFAMETHOXAZOLE-TRIMETHO*11/14/2006 SULFA (SULFONAMIDE ANTIBIOTICS) 11/14/2006 Date Reviewed: 11/20/2017 Reviewed by: Merry Abbasi MA - Fully Assessed Visit Diagnoses:Primary hypertension [I10] Cardiac syncope [R55] Prescriptions as of 11/20/2017 Sig: OMEPRAZOLE 40 MG CAPSULE,FATIMAH* TAKE 1 CAPSULE BY MOUTH ONCE * ORENCIA CLICKJECT 125 MG/ML S* LEUCOVORIN CALCIUM 15 MG TABL* TAKE 1 TABLET BY MOUTH ONCE W* AMITRIPTYLINE 50 MG TABLET Take 1 tablet by mouth daily * SUMATRIPTAN 100 MG TABLET Take 1 tablet by mouth as nee* METHOTREXATE (PF) 7.5 MG/0.15* Inject 7.5 mg subcutaneously * X OMEPRAZOLE 40 MG CAPSULE,FATIMAH* Take 1 capsule by mouth once * FOLIC ACID ORAL Take 1 mg by mouth once daily* Problem List As Of Date 11/20/2017 Noted Resolved Chronic headaches [R51] INVALID FOR* Rheumatoid arthritis (HCC) [M06.9] INVALID FOR* Iron deficiency anemia [D50.9] INVALID FOR* 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 Merry Abbasi MA Encounter Status:Closed by MERRY ABBASI MA on 12/08/17 CBC W/DIFF, AUTOMATED Collected: 11/01/2017 Status: F Source: [place] 11:27 AM [facility] REPOSITORY TYPE CODE TESTS RESULT OUT OF RANGE REFERENCE UNITS LAB L100.1000 4.4-11.0 K/mm3 Low WBC 3.0 LAB L100.1200 4.6-6.2 M/mm3 Low RBC 4.19 LAB L100.1300 13.0-16.5 g/dl Low HGB 11.4 LAB L100.1400 40-54 % Low HCT 35.5 LAB L100.1500 80-94 fL Normal MCV 84.7 LAB L100.1600 27.0-32.0 pg Normal MCH 27.2 LAB L100.1700 32-36 g/gl Normal MCHC 32.1 LAB L100.1810 11.6-14.6 % High RDW CV 15.0 LAB L100.1820 35.1-43.9 fl High RDW SD 46.3 LAB L100.1900 150-450 K/mm3 Normal PLT 231 LAB L100.2000 6.2-12.0 fl Normal MPV 9.1 LAB L100.2100 47-70 % Normal NEUT% 61.3 LAB L100.2200 19-41 % Normal LY% 27.1 LAB L100.2300 0-10 % Normal MONO% 7.3 LAB L100.2400 0-5 % Normal EO% 3.0 LAB L100.2500 0-1 % Normal BASO% 1.0 LAB L100.2550 0.0-0.9 % Normal IM GRAN % 0.300 Result Comment: IG% - Immature Granulocytes (promyelocytes, myelocytes and metamyelocytes) > 1% indicates that a LEFT SHIFT is Present. LAB L100.2620 2.0-7.7 X10 3/uL Low Absolute Neut 1.9 LAB L100.2720 0.83-4.51 X10 3/ul Low Absolute Lymph 0.82 Performed By: #### L100.0100 #### [facility] [address] [place], [place], [address] COMPREHENSIVE METABOLIC Collected: 11/01/2017 Status: F Source: [facility] 11:27 AM [facility] REPOSITORY TYPE CODE TESTS RESULT OUT OF RANGE REFERENCE UNITS LAB L501.0100 74-106 mg/dL High GLU 115 Result Comment: Fasting Glucose result from 100 to 125 mg/dL suggests IMPAIRED HOMEOSTASIS per A.D.A. criteria. Please note revised GLUCOSE reference range effective 2017. LAB L501.1000 7-18 mg/dL Normal BUN 15 LAB L501.1100 0.70-1.30 mg/dL Normal CREAT,SERUM 1.17 Result Comment: The validity of the calculated GFR AND GFRAA in patients over 70 years has not been determined. Clinical correlation is essential. LAB L501.1110 >60 mL/min Normal EST GFR 71 Result Comment: Non- GFR Calc LAB L501.1115 >60 mL/min Normal EST GFR - AA 86 Result Comment: GFR Calc LAB L501.1300 10-20 RATIO Normal BUN/CRE 12.8 LAB L501.1500 6.4-8.2 g/dL T Normal PROT 6.6 LAB L501.1800 3.2-5.0 g/dL Normal ALB 3.5 LAB L501.1950 2.2-4.2 g/dL Normal GLOB 3.1 LAB L501.2000 0.9-2.4 RATIO Normal A/G 1.1 LAB L501.2200 8.5-10.1 mg/dL CA Normal 8.5 LAB L501.4100 15-37 U/L Normal AST 22 LAB L501.4305 45-117 U/L Normal ALK P 58 LAB L501.4405 16-61 U/L Normal ALT 27 LAB L501.4600 0.20-1.00 mg/dL T Normal BILI 0.20 LAB L501.5300 136-145 mmol/L NA Normal 143 LAB L501.5600 3.5-5.1 mmol/L K Normal 3.7 LAB L501.5900 98-107 mmol/L CL Normal 107 LAB L501.6100 21.0-32.0 mmol/L Normal CO2 26.0 LAB L501.6200 5-15 Normal GAP 10 Performed By: #### L500.4050 #### [facility] [address] [place], [place], [id number] RE-EVALUATION - PT (1) Observed: 2017 Status: F Source: [place] 10:19 AM [facility] REPOSITORY [facility] [address] [place], [place] [id number] Fax REEVALUATION / MEDICARE RECERTIFICATION PHYSICAL THERAPY #: [id number] Acct: [id number] Name: MICHELLE TOBIAS Rep #: [id number] : 1970 47 From: Mushtaq Meyer DPT Referring DrRishi: NICK CABALLERO Status: REG RCR Insurance: [employer] SELF PAY INSURANCE Nick Caballero, , It has been my pleasure to treat MICHELLE TOBIAS over the last 4 visits for R patellar dislocation. Please see the progress note below for an update on the physical therapy plan of care! Subjective: Pt. reports my right knee is doing really well, I do not have much issues any more. He reprots being back to work without difficulty, occassional soreness noted. Pt. reports being 90% better overall. Objective/Function: Pt. has full ROM without increase in symptoms of R knee. No clicking or locking noted. MMT- R ankle 5/5 throughout, knee- ext 5-/5, flexion 5-/5; hip- flexion 4+/5, abd 4+/5, ext 4+/5. Pt. is able to ambulate without issues or increase in symptoms. STAIRS: pt. is able to complete with reciprocal pattern without increase in symptoms. Mild L knee soreness with descending. Plan Plan: Pt. is indendent with current HEP for quad strengthening and knee stability exercises. Pt. desires to complete on own at this point in time. I will leave case open for 1 month, if I do not hear from pt during this period I will DC pt. back to physician. Goals Goal 1:: Pt. to be I with HEP. Goal Time Frame: 4-6 Weeks Goal Progress: Goal Met Goal 2:: Pt. to have R knee ROM 0-0-125deg without increase in symptoms. Goal Time Frame: 4-6 Weeks Goal Progress: Goal Met Goal 3:: Pt. to have increased RLE- quad, HS, glute med and hip ER strength increased by 1/2 grade to increase R knee stability. Goal Time Frame: 4-6 Weeks Goal Progress: Goal Met Goal 4:: Pt. to ambulate without increase in symptoms unlimited distances. Goal Time Frame: 4-6 Weeks Goal Progress: Goal Met Goal 5:: Pt. to negotiate steps with reciprocal pattern without increase in symptoms with 1 HR. Goal Time Frame: 4-6 Weeks Goal Progress: Goal Met Goal 6:: Pt. to resume all work activities without increase in symptoms. Goal Time Frame: 4-6 Weeks Goal Progress: Goal Met Anticipated Interventions Patient/Client Instruction: Educate patient on: Condition, Plan of Care, Risk Factors, Benefits of Fitness Program For the Purpose of:: To foster healthy habits, To improve decision making, To facilitate caregiver knowledge, To improve self management, To prevent re-injury, To improve ability to perform tasks related to life management, To improve tolerance to ADL's Therapeutic Exercise to Include: Strength training, Endurance training, Balance training, Coordination, Body mechanics, Postural training, Flexibilty training, Gait and locomotor training, Passive ROM, Active ROM, Dynamic Lumbar Stabilization For the Purpose of:: To decrease pain, To increase ROM, To improve nutrient delivery to tissue, To increase oxygenation perfusion, To improve muscle performance and motor function, To improve ability to perform ADL's, To increase tolerance to activity/condition/position, To improve gait and locomotor functions, To improve health of tissue, To decrease soft tissue restriction, To increase flexibility/ROM, To improve balance Manual Therapy Techniques to Include: Petrissage, Mobilization, Functional dry needling, Soft tissue mobilization For the Purpose of:: To decrease pain, To decrease swelling/inflammation, To increase ROM IF ES: Yes Cryotherapy (ice pack, ice massage): Yes Thermo therapy (hot pack): Yes Ultrasound (thermal/non thermal): Yes For the Purpose of:: To decrease pain, To decrease swelling/inflammation, To increase ROM, To improve nutrient delivery to tissue Please do not hesitate to contact me at [phone] by phone or if you have questions or concerns regarding this new plan of care! Sincerely, Mushtaq Meyer <Electronically signed by Mushtaq Meyer DPT> 10/15/17 1019 CC: NICK CABALLERO; Duncan Nolasco MD CLS Signed For Medicare only, by signing this I certify the plan of care. Physicians Signature Date UPPER EXT/NO JT/ WO Observed: 10/08/2017 Status: F Source: [place] 11:27 AM [facility] REPOSITORY [facility] Imaging Services [address] [place] [address] Upper Ext/No Jt/ wo MR#: [id number] Acct: [id number] Name: MICHELLE TOBIAS Rep #: [id number] : 1970 M 46 From: Silver Don MD PCP: Cecilia SCHUSTER,Duncan Status: REG CLI Study: Upper Ext/No Jt/ wo Date of Exam: 10/08/17 Exam# [id number] Ordering Dr: Foster Limon MD STUDY: MRI RIGHT HAND REASON FOR EXAM: Male, 46 years old. Unable to bend middle finger since cutting injury of distal phalanx. TECHNIQUE: Standardized fat and water weighted pulse sequences were obtained in all 3 orthogonal planes. A tissue marker identifying the area of concern on the volar surface of the third finger at the DIP joint (sagittal series 5 image 18). COMPARISON: X-rays of the fingers dated September 01, 2017 FINDINGS: THIRD DIGIT: There is a complete retracted tear of the flexor digitorum profundus with approximately 2.5 cm of separation of the proximal and distal tendon fragments. There is fluid between the fragments (axial inversion recovery series 8 images A-22, sagittal series 5 images 15-19). There is also thinning of the flexor digitorum superficialis (sagittal series 5 image 18). There is metallic artifact in the superficial subcutaneous soft tissues at the PIP joint probably representing a small metallic fragment (sagittal series 5 image 18). Normal visualized thenar and hypothenar muscles. Normal lumbricalis and interosseous muscles. There are no solid, cystic or lipomatous masses. MRI/Upper Ext/No Jt/ wo IMPRESSION: Full-thickness retracted tear of the flexor digitorum profundus as with fluid between the 2 tendon fragments. Thinning of the flexor digitorum superficialis tendon. Small metallic artifact in the superficial subcutaneous soft tissues at the PIP joint on the volar are aspect of the finger. Electronically Signed: Silver Don MD at 11:06 EDT , Service support , CC: Foster Limon MD; Duncan Nolasco MD Incident Coordinator: Signed INITAL EVALUATION (1) Observed: 09/26/2017 Status: F Source: [place] - PT 7:15 PM [facility] REPOSITORY [facility] [address] [place] [address] Fax [facility]HABILITATION SERVICES INITIAL EVALUATION MR#: [id number] Acct: [id number] Name: MICHELLE TOBIAS Rep #: [id number] : 1970 46 From: Mushtaq Meyer DPT Referring Dr.: NICK CABALLERO Status: REG RCR Insurance: [employer] SELF PAY INSURANCE Patient's Visit Information MICHELLE TOBIAS is a 46 year old M referred to Physical Therapy by Nick Caballero, with a diagnosis of R patellar dislocation. Date of Evaluation: 09/10/17 Physical Therapist: Mushtaq Meyer - Visit Plan Frequency: 2x /Week Duration: 4 Weeks Plan: Start with quad/HS/glute med/Er strengthening in [place] progressing to CKC as tolerated. Cont. with ROM as tolerated. May use modalities as needed. - Subjective Subjective: Pt. is here today for his initial evaluation with diagnosis of R patellar dislocation. Pt. reports a fews ago passing out on the back of his trunk and falling off. He reports he has occassionally suddenly loss conciousness and is seeing a surgical appliances salesperson about it now. He has increased pain after wards and had a history of a meniscal tear and throught that this was the case as well. Pt. had MRI and showed no tears. Pt. arrives wearing brace this date with lateral stays. Pt. works and [employer] and is able to complete most activities, but continues to have increased pain with walking, stairs, standing for too long and increased stiffness. Decreased pain: rest, staying off of his leg. Pt. denies N/T, but did have initial edema, now has improved. Pt. reports being better since initial injury, but continues to have issues. Pt. reports no giving out or locking of knee. Pt. is hopeful to increase ROM and strength in order to get back to all recreational activities without issues. - Pain R knee Pain Intensity (Out of 10): 3 Pain Intensity Range: 1, 5 - Objective POSTURE: Pt. has slight wt. shift to L side, lacks R TKE in stance. Pt. has otherwise normal SWATHI and posture. PALPATION: Pt. has increased tenderness to palpation throughout medial joint line and posterior capsule. Pt. has no calf pain with palpation. Pt. has no lateral knee pain. NEUROLOGICAL: Normal senation and DTR bilaterally. Negative homans sign. ROM: R knee AROM- 0-8-98deg. Increase in symptoms at end ranges. PROM 0-4-103deg Increased pain at end ranges. Pt. gomes tight IT band and HS as well. R worse than L. MMT- RLE- ankle 5/5 throughout; knee- ext 4/5 increase NW, flexion 4/5 increase NW; hip- flexion 4/5, abd 4+/5, ext 4+/5. Core strength- fair-. GAIT: Pt. has antalgic pattern during R stance phase. Pt. has increased R lateral lean during R stance phase. decreased L step length. Pt. lacks TKE during R stance phase and decreased knee flexion during swing phase. STAIRS: pt. complets with step to pattern with loading LLE throughout. - Goals Goal 1:: Pt. to be I with HEP. Goal Time Frame: 4-6 Weeks Goal 2:: Pt. to have R knee ROM 0-0-125deg without increase in symptoms. Goal Time Frame: 4-6 Weeks Goal 3:: Pt. to have increased RLE- quad, HS, glute med and hip ER strength increased by 1/2 grade to increase R knee stability. Goal Time Frame: 4-6 Weeks Goal 4:: Pt. to ambulate without increase in symptoms unlimited distances. Goal Time Frame: 4-6 Weeks Goal 5:: Pt. to negotiate steps with reciprocal pattern without increase in symptoms with 1 HR. Goal Time Frame: 4-6 Weeks Goal 6:: Pt. to resume all work activities without increase in symptoms. Goal Time Frame: 4-6 Weeks - Rehabilitation Potential Physical Therapy Diagnosis: Pt. has signs and symptoms consistent with R patellar dislocation. Pt. had subsequent RLE weakness and hypomobility. Pt. would benefit from PT to increase RLE strength and ROm allowing for return to all recreational activities without limitations. Rehabilitation Potential: Excellent - Anticipated Interventions Patient/Client Instruction: Educate patient on: Condition, Plan of Care, Risk Factors, Benefits of Fitness Program For the Purpose of:: To foster healthy habits, To improve decision making, To facilitate caregiver knowledge, To improve self management, To prevent re-injury, To improve ability to perform tasks related to life management, To improve tolerance to ADL's Therapeutic Exercise to Include: Strength training, Endurance training, Balance training, Coordination, Body mechanics, Postural training, Flexibilty training, Gait and locomotor training, Passive ROM, Active ROM, Dynamic Lumbar Stabilization For the Purpose of:: To decrease pain, To increase ROM, To improve nutrient delivery to tissue, To increase oxygenation perfusion, To improve muscle performance and motor function, To improve ability to perform ADL's, To increase tolerance to activity/condition/position, To improve gait and locomotor functions, To improve health of tissue, To decrease soft tissue restriction, To increase flexibility/ROM, To improve balance Manual Therapy Techniques to Include: Petrissage, Mobilization, Functional dry needling, Soft tissue mobilization For the Purpose of:: To decrease pain, To decrease swelling/inflammation, To increase ROM IF ES: Yes Cryotherapy (ice pack, ice massage): Yes Thermo therapy (hot pack): Yes Ultrasound (thermal/non thermal): Yes For the Purpose of:: To decrease pain, To decrease swelling/inflammation, To increase ROM, To improve nutrient delivery to tissue Thank you for the opportunity to evaluate your patient. For Medicare and Medicare HMO plans, please review the plan of care and approve it. It will need to be FAXED BACK to us at [phone] for Medicare purposes. Please let me know if there are questions or concerns regarding this plan of care. Physician Signature: Date: <Electronically signed by Mushtaq Meyer DPT> 09/26/17 1915 CC: NICK CABALLERO; Duncan Nolasco MD CLS Signed For Medicare only, by signing this I certify the plan of care. Physicians Signature Date URGENT CARE VISIT Observed: 09/24/2017 Status: F Source: [place] REPORT 12:03 PM [facility] REPOSITORY [facility] [address] [place] [address] [address] [place] [address] OFFICE VISIT Date of Service: 09/23/17 MR#: [id number] Acct: [id number] Name: MICHELLE TOBIAS Rep #: [id number] : 1970 Provider: Darian OVERTON Age/Sex: 46/M Location: [facility] Status: Signed Intake Vital Signs09/23/17 Height 5 ft 11.5 in Intake Visit Reasons: RT MIDDLE FINGER/HAND F/U /SCHAEFFLER/AMY Allergies Sulfa (Sulfonamide Antibiotics) Allergy (Verified 09/23/17 16:42) Unknown sulfamethoxazole [From Septra] Allergy (Verified 09/23/17 16:42) Unknown trimethoprim [From Septra] Allergy (Verified 09/23/17 16:42) Unknown Medications abatacept 125 mg/mL subcutaneous auto-injector SC 28 Days #4 09/23/17 [History Confirmed 09/23/17] amitriptyline 50 mg tablet PO 30 Days #30 09/23/17 [History Confirmed 09/23/17] folic acid 1 mg tablet PO 90 Days #180 09/23/17 [History Confirmed 09/23/17] leucovorin calcium 15 mg tablet PO 90 Days #12 09/23/17 [History Confirmed 09/23/17] methotrexate sodium 25 mg/mL injection solution IM 28 Days #4 09/23/17 [History Confirmed 09/23/17] omeprazole 40 mg capsule,delayed release PO 90 Days #90 09/23/17 [History Confirmed 09/23/17] sumatriptan 100 mg tablet PO 9 Days #9 09/23/17 [History Confirmed 09/23/17] PFS Medical History Arthritis (Acute) Difficulty balancing (Acute) Knee pain (Acute) Migraines (Acute) Stomach ulcer (Acute) HTN (hypertension) (Chronic) Surgical History History of knee surgery (Acute) History of spinal surgery (Acute) Social History Smoking Status: Never smoker alcohol intake: never HPI HPI Details: MICHELLE TOBIAS, is a 46 M who presents to the office today for follow-up of a work-related injury which occurred on 08/03/2017. On that date the patient sustained a contusion to the right middle finger. Patient today continues to have no ability to flex at the DIP joint of the right middle finger. He additionally reports intermittent swelling and tenderness to the DIP joint but no redness or warmth. He denies any numbness or tingling and reports full sensation to the finger. Patient is requesting to be sent to a hand surgeon for further evaluation. No other associated symptoms or alleviating/aggravating factors. ROS Const Constitutional: No chills, fever(s), fatigue or abnormal sleep pattern Musc Musculoskeletal: Positive for joint pain, joint swelling and limited range of motion; no numbness or tingling Skin Skin: No wounds or lesions Neuro Neurology: No behavioral changes, confusion, numbness or tingling Psych Psychiatric: No behavioral changes, No confusion, No abnormal sleep pattern Endo Endocrine: No fatigue Exam Const General: cooperative, healthy appearing Skin General: no rashes or lesions noted Neuro General: alert, CN's II-XI intact bilaterally Extrem Other: No active range of motion to the right middle finger DIP joint. Full passive range of motion to the joint without resistance. No swelling, warmth or erythema to the DIP joint. Psych Appearance: grossly normal Mental Status: mental status grossly normal Assessment AND Plan Problems 1. Contusion of right middle finger without damage to nail, initial encounter S60.031A Plan C9 form filled out requesting MRI of the right hand as well as referral to orthopedic hand surgeon. Impres Medical 14 filled out releasing patient back to work today without restrictions. Patient advised that he should only follow-up here for further issues or concerns about the right middle finger and that upon approval of the C9 he should report to orthopedic surgeon. Patient verbalized understanding of all the above. This note was generated with [employer] software. It may contain incorrect words, spelling, and punctuation that were not noted in checking the note before signing. Coding Level of Care Code Off vis,est,level 3 Diagnoses Contusion of right middle finger without damage to nail, initial encounter S60.031A 09/24/17 1203 <Electronically signed by Darian OVERTON> Date Darian OVERTON Cosigner Signature: Date (if applicable) CC: DOWNTIME REPORT Observed: 09/11/2017 Status: F Source: [place] 1:26 PM [facility] Medical Records Department [address] [place] [address] Downtime Report MR#: [id number] Acct: [id number] Name: LATAUSAMA HARRISCHERYLE Obrien Rep #: [id number] : 1970 46 From: Brayan Brice PCP: Cecilia SCHUSTER,Duncan Status: REG CLI This patient was seen during an EMR downtime August 25, 2017 - September 01, 2017. This patient may have a combination of paper and electronic documentation or all paper documentation. All documentation is viewable within the e-chart portion of [employer] for each patient visit. DOWNTIME REPORT Observed: 09/11/2017 Status: F Source: [place] 12:10 PM [facility] Medical Records Department [address] [place] [address] Downtime Report MR#: [id number] Acct: [id number] Name: MICHELLE TOBIAS Rep #: [id number] : 1970 46 From: Brayan Brice PCP: Cecilia SCHUSTER,Duncan Status: REG CLI This patient was seen during an EMR downtime August 25, 2017 - September 01, 2017. This patient may have a combination of paper and electronic documentation or all paper documentation. All documentation is viewable within the e-chart portion of [employer] for each patient visit. FINGER(S) MIN 2 VIEWS Observed: 09/01/2017 Status: F Source: [place] 5:56 PM [facility] REPOSITORY [facility] Imaging Services [address] [place] [address] Finger(s) Min 2 Views MR#: [id number] Acct: [id number] Name: MICHELLE TOBIAS R Rep #: [id number] : 1970 M 46 From: Silver Don MD PCP: Duncan Nolasco MD Status: REG CLI Study: Finger(s) Min 2 Views Date of Exam: 09/01/17 Exam# [id number] Ordering Dr: Darian Benito STUDY: X-RAY - RIGHT HAND, ATTENTION THIRD FINGER REASON FOR EXAM: Male, 46 years old. Question injury to third finger. Pain. TECHNIQUE: 3 view(s) of the finger were obtained. COMPARISON: None. FINDINGS: Normal metacarpal head. Normal metacarpophalangeal joint. Normal proximal phalanx. Normal middle phalanx. Normal distal phalanx. Normal proximal interphalangeal joint. Normal distal interphalangeal joint. RAD/Finger(s) Min 2 Views IMPRESSION: No significant abnormality identified. Electronically Signed: Silver Don MD at 13:10 EDT , Service support , CC: Darian OVERTON; Duncan Nolasco MD Incident Coordinator: Signed LOWER EXT JOINT ONLY Observed: 08/28/2017 Status: F Source: [place] (ROUTINE) 7:54 PM [facility] REPOSITORY [facility] Imaging Services [address] [place] [address] Lower Ext Joint Only (Routine) MR#: [id number] Acct: [id number] Name: USAMA TOBIASIC R Rep #: [id number] : 1970 M 46 From: Mejia Grace MD PCP: Cecilia SCHUSTER,Duncan Status: REG CLI Study: Lower Ext Joint Only (Routine) Date of Exam: 08/25/17 Exam# [id number] Ordering Dr: Nick Caballero MD STUDY: MRI RIGHT KNEE REASON FOR EXAM: Male, 46 years old. Pain TECHNIQUE: Standardized fat and water weighted pulse sequences were obtained in all 3 orthogonal planes. COMPARISON: None. FINDINGS: There is a joint effusion (image 7/30 axial T2 fat sat). There is bone marrow edema at the inferomedial patella (image 8/30 axial T2 fat sat). There is bone marrow edema at the lateral aspect of the lateral femoral condyle (image 10/30 axial T2 fat sat). There is bone marrow edema at the lateral aspect of the weightbearing lateral femoral condyle (image 14/30 coronal T2 fat sat). There is slight thickening at the medial patellar retinaculum/medial patella femoral ligament at the patellar attachment (image 9/30 axial T2 fat sat). There is loss of articular cartilage at the patella (image 8/30 axial T2 fat sat). There is focal loss of articular cartilage at the distal femoral trochlear groove at its lateral aspect (image 11/30 axial T2 fat sat). There is hypoplastic distal femoral trochlear groove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 appointment : Visit date not found The patients preferred pharmacy has been captured for this encounter. Patient phones requesting refills as follows: Pending Prescriptions Disp Refills AMITRIPTYLINE 50 MG TABLET 30 tablet 11 Sig: Take 1 tablet by mouth daily at bedtime. MAREN: No Please review and advise. Amos Dos Santos MD 06/16/2017 2:22 PM Signed 3 month supply written, Patient needs to f/u for more refills after that Last visit > 1 year ago Amos Broussard MA 06/17/2017 2:52 PM Signed Lm for patient to return call. Amos Broussard MA 06/17/2017 14:52:35 Allergies As of Date: 06/16/2017 Noted Allergy Reaction SEPTRA (SULFAMETHOXAZOLE-TRIMETHO*11/14/2006 SULFA (SULFONAMIDE ANTIBIOTICS) 11/14/2006 Date Reviewed: 01/03/2017 Reviewed by: Oneida Araujo Ma - Fully Assessed Reason for Visit: Refill Request [94] Order(s):amitriptyline (ELAVIL) 50 mg tabletTake 1 tablet by mouth daily at bedtime.Disp: 30 tabletRfl: 2 Prescriptions as of 06/16/2017 Sig: AMITRIPTYLINE 50 MG TABLET Take 1 tablet by mouth daily * SUMATRIPTAN 100 MG TABLET Take 1 tablet by mouth as nee* METHOTREXATE (PF) 7.5 MG/0.15* Inject 7.5 mg subcutaneously * OMEPRAZOLE 40 MG CAPSULE,FATIMAH* Take 1 capsule by mouth once * FOLIC ACID ORAL Take 1 mg by mouth once daily* Problem List As Of Date 06/16/2017 Noted Resolved Chronic headaches [R51] INVALID FOR* Rheumatoid arthritis (HCC) [M06.9] INVALID FOR* Iron deficiency anemia [D50.9] INVALID FOR* 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 Medications Discontinued During This Encounter amitriptyline (ELAVIL) 50 mg tablet 30 t* 11 03/19/2016 06/16/2017 Route: ORAL Sig: Take 1 tablet by mouth daily at bedtime. Disc: Reason for discontinue is not on file. Encounter Status:Closed by ILIANA BRANCH MAKER, RADHA on 08/22/17 PROGRESS Observed: 06/10/2017 Status: COMPLETED Source: [place] 2:52 PM [facility] RE[facility] HNO ID: [id number] Author: Monica Melendez LPN Service: (none) Author Type: (none) Type: Progress Notes Filed: 06/10/2017 2:54 PM Note Text: Patient presents for TDaP immunization. Denies any problems at this time. Tolerated injection well. Monica Melendez LPN CNNURSE Observed: 06/10/2017 Status: COMPLETED Source: [place] 2:45 PM [facility] RE[facility]IT[facility] Nurse Visit (FAMPWS) MICHELLE TOBIAS ([id number]) 1970 M Date Time Provider Department 06/10/17 2:45 PM [facility] During your visit today, we recorded the following information about you: Monica Melendez LPN 06/10/2017 2:54 PM Signed Patient presents for TDaP immunization. Denies any problems at this time. Tolerated injection well. Monica Melendez LPN Referring Provider: DUNCAN NOLASCO [[id number]] Allergies As of Date: 06/10/2017 Noted Allergy Reaction SEPTRA (SULFAMETHOXAZOLE-TRIMETHO*11/14/2006 SULFA (SULFONAMIDE ANTIBIOTICS) 11/14/2006 Date Reviewed: 01/03/2017 Reviewed by: Oneida Araujo Ma - Fully Assessed Reason for Visit: Imm/Inj [58] Primary Visit Diagnosis:Need for vaccination [Z23] Prescriptions as of 06/10/2017 Sig: SUMATRIPTAN 100 MG TABLET Take 1 tablet by mouth as nee* METHOTREXATE (PF) 7.5 MG/0.15* Inject 7.5 mg subcutaneously * OMEPRAZOLE 40 MG CAPSULE,FATIMAH* Take 1 capsule by mouth once * FOLIC ACID ORAL Take 1 mg by mouth once daily* AMITRIPTYLINE 50 MG TABLET Take 1 tablet by mouth daily * Problem List As Of Date 06/10/2017 Noted Resolved Chronic headaches [R51] INVALID FOR* Rheumatoid arthritis (HCC) [M06.9] INVALID FOR* Iron deficiency anemia [D50.9] INVALID FOR* 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 The CDC has stated the following In healthy persons who have a low likelihood both of M tuberculosis infection and of progression to active tuberculosis if infected, a single positive Interferon gamma release assay (IGRA) or tuberculin skin test (TST) result should not be taken as reliable evidence of M tuberculosis infection. Because of the low probability of infection, a false-positive is more likely. In such situations the likelihood of M tuberculosis infection and of disease progression should be reassessed, and the initial test results should be confirmed (on a new specimen). Repeat testing with either the initial test or a different test, may be considered on a aclf-uv-desr basis. For such persons, an alternative is to assume, without additional testing, that the initial result is a false positive. (MMWR, 2009;59(PX-05 p12). The specimen received for QuantiFERON testing was incubated by the ordering institution. Specific procedures outlined in our Directory of Services and in the package insert for the QuantiFERON Gold (In Tube) test must be followed to enable for proper stimulation of cells for the production of interferon gamma. LAB L3400.7035 . Normal QFT TB Comment POS CRIT Result Comment: To be considered positive a specimen should have a TB Ag minus Nil value greater than or equal to 0.35 IU/mL and in addition the TB Ag minus Nil value must be greater than or equal to 25% of the Nil value. There may be insufficient information in these values to differentiate between some negative and some indeterminate test values. LAB L3400.7045 . IU/mL Normal QFT TB AB 0.50 VALUE LAB L3400.7055 . IU/mL Normal QFT NIL VALUE 0.07 LAB L3400.7065 . IU/mL Normal QFT MITOGEN 5.63 [facility] LAB L3400.7075 . IU/mL Normal QFT AG - NIL 0.43 LAB L3400.7085 . Normal QFT TB INTER Comment Result Comment: The QuantiFERON TB Gold (in Tube) assay is intended for use as an aid in the diagnosis of TB infection. Negative results suggest that there is no TB infection. In patients with high suspicion of exposure, a negative test should be repeated. A positive test indicates infection with Mycobacterium tuberculosis. Among individuals without tuberculosis infection, a positive test may be due to exposure to M. kansasii, M. szulgai or M. marinum. On the Internet, go to cdc.gov/tb for further details. Performed at: [employer] [address] [id number] Geospatial Scientist: Ludin Lynn PhD, Phone: [phone] Performed By: #### L3400.7000 #### [facility] (refer to report for specific site) refer to report for address and phone number COMPREHENSIVE METABOLIC Collected: 05/12/2017 Status: F Source: [facility] 4:38 PM [facility] REPOSITORY TYPE CODE TESTS RESULT OUT OF RANGE REFERENCE UNITS LAB L501.0100 74-106 mg/dL Normal GLU 90 Result Comment: Please note revised GLUCOSE reference range effective 2017. LAB L501.1000 7-18 mg/dL Normal BUN 9 LAB L501.1100 0.70-1.30 mg/dL Normal CREAT,SERUM 1.07 Result Comment: The validity of the calculated GFR AND GFRAA in patients over 70 years has not been determined. Clinical correlation is essential. LAB L501.1110 >60 mL/min Normal EST GFR 79 Result Comment: Non- GFR Calc LAB L501.1115 >60 mL/min Normal EST GFR - AA 95 Result Comment: GFR Calc LAB L501.1300 10-20 RATIO Low BUN/CRE 8.4 LAB L501.1500 6.4-8.2 g/dL Normal T PROT 7.0 LAB L501.1800 3.2-5.0 g/dL Normal ALB 3.8 LAB L501.1950 2.2-4.2 g/dL Normal GLOB 3.2 LAB L501.2000 0.9-2.4 RATIO Normal A/G 1.2 LAB L501.2200 8.5-10.1 mg/dL Normal CA 8.8 LAB L501.4100 15-37 U/L Normal AST 34 LAB L501.4305 45-117 U/L Normal ALK P 54 LAB L501.4405 16-61 U/L Normal ALT 40 Result Comment: Please note revised ALT reference range effective 2017. LAB L501.4600 0.20-1.00 mg/dL Normal T BILI 0.30 LAB L501.5300 136-145 mmol/L Normal NA 138 LAB L501.5600 3.5-5.1 mmol/L Normal K 3.7 LAB L501.5900 98-107 mmol/L Normal CL 103 LAB L501.6100 21.0-32.0 mmol/L Normal CO2 29.0 LAB L501.6200 5-15 Normal GAP 6 Performed By: #### L500.4050 #### [facility] [address] [place], [address] CBC W/DIFF, AUTOMATED Collected: 05/12/2017 Status: F Source: [place] 4:38 PM [facility] REPOSITORY TYPE CODE TESTS RESULT OUT OF RANGE REFERENCE UNITS LAB L100.1000 4.4-11.0 K/mm3 Low WBC 3.5 LAB L100.1200 4.6-6.2 M/mm3 Low RBC 4.51 LAB L100.1300 13.0-16.5 g/dl Low HGB 12.1 LAB L100.1400 40-54 % Low HCT 38.4 LAB L100.1500 80-94 fL Normal MCV 85.1 LAB L100.1600 27.0-32.0 pg Low MCH 26.8 LAB L100.1700 32-36 g/gl Low MCHC 31.5 LAB L100.1810 11.6-14.6 % Normal RDW CV 13.5 LAB L100.1820 35.1-43.9 fl Normal RDW SD 42.0 LAB L100.1900 150-450 K/mm3 Normal PLT 227 LAB L100.2000 6.2-12.0 fl Normal MPV 9.6 LAB L100.2100 47-70 % Normal NEUT% 54.6 LAB L100.2200 19-41 % Normal LY% 33.2 LAB L100.2300 0-10 % Normal MONO% 7.7 LAB L100.2400 0-5 % Normal EO% 3.4 LAB L100.2500 0-1 % High BASO% 1.1 LAB L100.2550 0.0-0.9 % Normal IM GRAN % 0.000 Result Comment: IG% - Immature Granulocytes (promyelocytes, myelocytes and metamyelocytes) > 1% indicates that a LEFT SHIFT is Present. LAB L100.2620 2.0-7.7 X10 3/uL Low Absolute Neut 1.9 LAB L100.2720 0.83-4.51 X10 3/ul Normal Absolute Lymph 1.16 Performed By: #### L100.0100 #### [facility] [address] [place], [address] ALLERGIES ALLERGIES DATE TYPE / CODE NAME / CODE REACTION SEVERITY SOURCE 09/23/2017 Drug Sulfa Unknown Unknown [facility] Allergy/4160 (Sulfonamide Hospital 19691(SNOMED Antibiotics)/ Repository CT) [id number](RX NORM) 09/23/2017 Drug sulfamethoxaz Unknown Unknown [facility] [place] [facility] Allergy/4160 ole/[id number] Hospital 32430(SNOMED 7(RXNORM) Repository CT) 09/23/2017 Drug trimethoprim/ Unknown Unknown [place] [facility] Allergy/4160 [id number](RX Hospital 57029(SNOMED NORM) Repository CT) 11/14/2006 DRUG/[id number] SULFAMETHOXAZ [facility] 03(SNOMED OLE-TRIMETHOP [facility] [place] [facility]) RIM Repository 11/14/2006 Drug SULFA [facility] Class/523337 (SULFONAMIDE [facility] [place] 003(SNOMED ANTIBIOTICS) Repository CT) ENCOUNTERS ENCOUNTERS ADMIT/DISCHARGE ACCOUNT ADMITTING ENCOUNTER LOCATION SOURCE NUMBER CLASS 04/16/2018 [id number] [facility] ing:OT Repository 04/10/2018 [id number] [facility] ing:MTLAB Repository 01/29/2018 [id number] [facility] ing:MTLAB Repository 01/20/2018/01/22/20 [id number] Ambulatory [address] [place] Repository 11/25/2017/11/27/19 [id number] Ambulatory [address] Repository 11/20/2017/11/26/19 [id number] Ambulatory [address] Repository 11/20/2017/11/21/19 [id number] Ambulatory [address] Repository 11/01/2017 [id number] Ambulatory [facility] ing:LAB Repository 10/09/2017 [id number] Ambulatory BMSBuilding:[facility] Repository 10/09/2017 [id number] Ambulatory [facility] ing:PSN Repository 10/08/2017/10/09/19 [id number] Ambulatory [address] [facility] Hospital ing:PT Repository 10/08/2017 [id number] Ambulatory [facility] ing:MRI Repository 09/23/2017/09/24/19 [id number] Ambulatory BMSBuilding:B [place] [address] Hospital Repository 09/12/2017/09/13/19 [id number] Ambulatory [address] Repository 09/12/2017/09/13/19 [id number] Ambulatory [address] Repository 09/01/2017 [id number] Ambulatory [facility] ing:RAD Repository 09/01/2017/09/02/19 [id number] Ambulatory BMSBuilding:B [place] [address] Hospital Repository 08/25/2017 [id number] Ambulatory [facility] ing:MRI Repository 08/04/2017 [id number] Ambulatory [facility] ing:MTLAB Repository 08/01/2017/08/02/19 [id number] Ambulatory [address] Repository 08/01/2017/08/05/19 [id number] Ambulatory [address] Repository 06/10/2017/06/12/19 [id number] Ambulatory [address] Repository 05/14/2017 [id number] Ambulatory [facility] ing:MTLAB Repository 05/12/2017 [id number] Ambulatory [place] [facility] ing:MTLAB Repository PAYERS PAYERS ENCOUNTER GUARANTOR PAYER SUBSCRIBER SOURCE 04/16/2018 MICHELLE R Primary MICHELLE R [place] [id number] Insurance:SELF INS WELTLICHDOB[facility] LUKPolicy Number: [id number] [place], [place] [id number] Repository 588[address]Lge: (805) Date:2051-45-20PUYGBF [phone] () [facility] [address] [address]QSTCSTHSFRBK, [place] [address]HW: 04/16/2018 Secondary MICHELLE R [place] Insurance:ANTHEMPolic WELTLICHDOB: Community y Number: [id number] Hospital [id number] Repository lynnette Date:5714-00-74SU [address] [place] [address]CG: 04/16/2018 Tertiary NOT GIVENUNK [place] Insurance:SELF PAY [facility] Number: Effective Repository Date:2017-12-10 04/10/2018 MICHELLE R Primary MICHELLE R [place] [id number] Insurance:ANTHEMPolic WELTLICHDOB: [facility] y Number: [id number] [place], [place] [id number] Repository [address]Nyi: (102) lynnette Date:4040-52-39DF [phone] () [address] [place] [address]WR: 04/10/2018 Secondary NOT GIVENUNK [place] Insurance:SELF PAY [facility] Number: Effective Repository Date:2018-04-10 01/29/2018 MICHELLE R Primary MICHELLE R [place] [id number] Insurance:ANTHEMPolic WELTLICHDOB: [facility] y Number: [id number] [place], [place] [id number] Repository [address]Zdg: (691) lynnette Date:8842-47-91CL [phone] () [address] [place] [address]95[address]OQ: 01/29/2018 Secondary NOT GIVENUNK [place] Insurance:SELF PAY [facility] Number: Effective Repository Date:2018-01-29 11/01/2017 MICHELLE R Primary MICHELLE R [place] [id number] Insurance:ANTHEMPolic WELTLICHDOB: [facility] y Number: [id number] [place], [place] [id number] Repository [address]Qbo: (330) lynnette Date:5057-48-92TE [phone] () [address] [place] [address]DN: 11/01/2017 Secondary NOT GIVENUNK [place] Insurance:SELF PAY [facility] Number: Effective Repository Date:2017-11-01 10/09/2017 MICHELLE R Primary MICHELLE R [place] [id number] Insurance:ANTHEMPolic WELTLICHDOB: Community [facility] y Number: [id number] [place], [place] [id number] Repository [address]Ffs: (330) lynnette Date:3861-02-43BN [phone] () [address] [place] [address]AE: 10/09/2017 Secondary NOT GIVENUNK [place] Insurance:SELF PAY [facility] Number: Effective Repository Date:2017-10-09 10/09/2017 MICHELLE R Primary MICHELLE R [place] [id number] Insurance:ANTHEMPolic WELTLICHDOB: Community [facility] y Number: [id number] [place], [place] [id number] Repository [address]Dad: (426) lynnette Date:3832-76-95NB [phone] () [address]JPEPG [place] [address]XY: 10/09/2017 Secondary NOT GIVENUNK [place] Insurance:SELF PAY [facility] Number: Effective Repository Date:2017-09-02 10/08/2017 MICHELLE R Primary MICHELLE R [place] [id number] Insurance:ANTHEMPolic WELTLICHDOB: Community [facility] y Number: [id number] [place]ane, [place] [id number] Repository [address]Owe: (720) lynnette Date:2803-09-31GW [phone] () [address] [place] [address]CH: 10/08/2017 Secondary NOT GIVENUNK [place] Insurance:SELF PAY [facility] Number: Effective Repository Date:2017-09-05 10/08/2017 MICHELLE R Primary MICHELLE R [place] [id number] Insurance:SELF INS WELTLICHDOB: Community [facility] LUKPolicy Number: [id number] [place], [place] [id number] Repository [address]Bja: (330) Date:6328-74-70VAVYUW [phone] () [facility] [address] [address]GVSDFNYSIXSO, [place] [address]ZI: 10/08/2017 Secondary NOT GIVENUNK [place] Insurance:SELF PAY [facility] Number: Effective Repository Date:2017-10-06 09/23/2017 MICHELLE R Primary MICHELLE R [place] [id number] Insurance:ANTHEMPolic WELTLICHDOB: [facility] [place] y Number: [id number] [place], [place] [id number] Repository 18[address]Udn: (330) lynnette Date:4561-43-30VQ [phone] () [address]GDJYMOS, [place] [address]PO: 09/23/2017 Secondary NOT GIVENUNK [place] Insurance:SELF PAY [facility] Number: Effective Repository Date:2017-09-23 09/01/2017 MICHELLE R Primary MICHELLE R [place] [id number] Insurance:SELF INS WELTLICHDOB: [facility] Number: [id number] [place]ane, [place] [id number] Repository [address]Zbd: (330) Date:7914-54-86ZIKRGX [phone] () [facility] [address] [address]VCGDCFNBXUQW, [place] [address]OZ: 09/01/2017 Secondary MICHELLE R [place] Insurance:ANTHEMPolic WELTLICHDOB: Community y Number: [id number] Hospital [id number] Repository lynnette Date:1295-99-00TY [address]QMIU, [place] [address]JP: 09/01/2017 Tertiary NOT GIVENUNK [place] Insurance:SELF PAY [facility] Number: Effective Repository Date:2017-09-01 09/01/2017 MICHELLE R Primary NOT GIVENUNK [place] [id number] Insurance:SELF PAY [facility] [place] Number: Effective Repository [address]Ckd: 330) Date:2017-09-11 [phone] () 08/25/2017 MICHELLE R Primary MICHELLE R [place] [id number] Insurance:ANTHEMPolic WELTLICHDOB: [facility] [place] y Number: [id number] [place], [place] [id number] Repository [address]Dhv: (330) lynnette Date:3258-08-79KJ [phone] () [address]FKYCFCY, [place] [address]XE: 08/25/2017 Secondary NOT GIVENUNK [place] Insurance:SELF PAY [facility] Number: Effective Repository Date:2017-08-15 08/04/2017 Michelle R Primary Michelle R [place] [id number] Insurance:ANTHEMPolic WeltlichDOB: [facility] y Number: [id number] [place], [place] [id number] Repository [address]Bnt: (056) lynnette Date:8028-41-88CV [phone] () [address]ITMPXAK, [place] [address]TA: 08/04/2017 Secondary NOT GIVENUNK [place] Insurance:SELF PAY [facility] Number: Effective Repository Date:2017-08-04 05/14/2017 Michelle R Primary Michelle R [place] [id number] Insurance:ANTHEMPolic WeltlichDOB: [facility] y Number: [id number] [place], [place] [id number] Repository [address]Pbb: (721) lynnette Date:7884-04-25QW [phone] () [address]VITJFTG [place] [address]LY: 05/14/2017 Secondary NOT GIVENUNK [place] Insurance:[facility] Number: Effective Repository Date:2017-05-14 05/12/2017 Michelle R Primary Michelle R [place] [id number] Insurance:ANTHEMPolic UmairB: [facility] y Number: [id number] [place], [place] [id number] Repository [address]Dmw: (304) lynnette Date:9763-48-22QA [phone] () [address]CSICZCX [place] [address]MA: 05/12/2017 Secondary NOT GIVENUNK [place] Insurance:SELF PAY [facility] Number: Effective Repository Date:2017-05-12
== END ==
PROVIDERS: Family Provider Family Medicine; PCP Family Medicine; Referring Provider Internal Medicine Rheumatology; Visit Provider Internal Medicine Rheumatology
DX: M06.09 Rheumatoid arthritis without rheumatoid factor, multiple sites (principal); Z79.899 Other long term (current) drug therapy; H35.30 Unspecified macular degeneration; R76.8 Other specified abnormal immunological findings in serum; Z87.11 Personal history of peptic ulcer disease; M21.40 Flat foot [pes planus] (acquired), unspecified foot; Z85.9 Personal history of malignant neoplasm, unspecified
CPT/HCPCS: 36415; 80053; 85025

== ENCOUNTER → 2018-04-29 09:55 | Outpatient (CLI) | payer BC, SELFPAY ==
--- NOTE | 2018-04-29 10:02 | RAD_ITS ---
STUDY: X-RAY - RIGHT FOOT CLINICAL: Male, 47 years old. Pain TECHNIQUE: 2 view(s) of the foot. COMPARISON: None. FINDINGS: Normal talus, calcaneus, and tarsal bones. Normal visualized subtalar, talonavicular, calcaneocuboid, tarsal and tarsometatarsal articulations. Normal metatarsi. There is degenerative arthrosis of the metatarsophalangeal joint of the hallux . Normal tibial and fibular sesamoid bones. Normal interphalangeal joint of the great toe. Normal phalanges of the great toe. Normal second through fifth metatarsophalangeal joints. Normal interphalangeal joints and phalanges of the lesser toes. The soft tissue structures are unremarkable. RAD/Foot 2 Views IMPRESSION: First MTP joint arthrosis, no demonstrated fracture or suspicious osseous lesion Electronically Signed: Papo Choudhury MD at 11:51 EST , Service support ,
--- NOTE | 2018-04-29 10:02 | RAD_ITS ---
STUDY: X-RAY - LEFT FOOT CLINICAL: Male, 47 years old. Pain TECHNIQUE: 2 view(s) of the foot. COMPARISON: None. FINDINGS: Normal talus, calcaneus, and tarsal bones. Normal visualized subtalar, talonavicular, calcaneocuboid, tarsal and tarsometatarsal articulations. Lateral drift of the second third and fourth metacarpal heads suggesting previous trauma. There is degenerative arthrosis of the metatarsophalangeal joint of the hallux . Normal tibial and fibular sesamoid bones. Normal interphalangeal joint of the great toe. Normal phalanges of the great toe. Normal second through fifth metatarsophalangeal joints. Normal interphalangeal joints and phalanges of the lesser toes. The soft tissue structures are unremarkable. RAD/Foot 2 Views IMPRESSION: Degenerative arthrosis, no demonstrated fracture or suspicious osseous lesion. Electronically Signed: Papo Choudhury MD at 11:53 EST , Service support ,
--- NOTE | 2018-04-29 10:02 | RAD_ITS ---
STUDY: X-RAY - LEFT HAND REASON FOR EXAM: Male, 47 years old. Pain TECHNIQUE: 2 view(s) of the hand. COMPARISON: None. FINDINGS: Normal radiocarpal articulation. Normal distal radioulnar joint. Normal visualized carpal bones. Normal carpal articulations Normal carpometacarpal articulation of the thumb. Normal second through fifth carpometacarpal joints. Normal metacarpi. Normal metacarpophalangeal joint of the thumb. Normal interphalangeal joint of the thumb. Normal proximal and distal phalanges of the thumb. Normal metacarpophalangeal joints of the second through fifth fingers. Normal proximal and distal interphalangeal joints of the second through fifth fingers. Normal phalanges of the second through fifth fingers. Possible foreign body dorsal to the proximal aspect of the proximal phalanx of the fourth finger RAD/Hand 2 Views IMPRESSION: Normal x-ray examination of the hand. Possible foreign body over the proximal fourth finger Electronically Signed: Papo Choudhury MD at 11:52 EST , Service support ,
--- NOTE | 2018-04-29 10:02 | RAD_ITS ---
STUDY: X-RAY - RIGHT HAND REASON FOR EXAM: Male, 47 years old. Pain TECHNIQUE: 2 view(s) of the hand. COMPARISON: None. FINDINGS: Normal radiocarpal articulation. Normal distal radioulnar joint. Normal visualized carpal bones. Normal carpal articulations Normal carpometacarpal articulation of the thumb. Normal second through fifth carpometacarpal joints. Normal metacarpi. Normal metacarpophalangeal joint of the thumb. Normal interphalangeal joint of the thumb. Normal proximal and distal phalanges of the thumb. Normal metacarpophalangeal joints of the second through fifth fingers. Normal proximal and distal interphalangeal joints of the second through fifth fingers. Normal phalanges of the second through fifth fingers. There is a radiopaque foreign body in the volar soft tissues between the distal interphalangeal joint of the fourth digit. RAD/Hand 2 Views IMPRESSION: Normal x-ray examination of the hand. Foreign body in the fourth digit Electronically Signed: Papo Choudhury MD at 11:49 EST , Service support ,
[2018-04-29 10:08] LABS: Bacteria 0 SEEN /hpf (None Seen); Red Blood Cells-Urine 0 SEEN /hpf (0-5); Squamous Epithelial Cells - UA 0 SEEN /hpf (0-5); White Blood Cells 0 SEEN /hpf (0-5)
[2018-04-29 11:59] LABS: Color, Urine Yellow (Yellow); Glucose, Dipstick Normal (Normal); Ketone-Dipstick Negative (Negative); Leukocyte Esterase-Dipstick Negative /ul (Negative); Nitrite-Dipstick Negative (Negative); Occult Blood-Urine Negative /ul (Negative); Protein-Dipstick 15 mg/dl (Negative); Urine Bilirubin Dipstick Negative (Negative); Urine Clarity Clear (Clear); Urine Urobilinogen Normal (Normal)
[2018-04-29 12:02] LABS: Erythrocyte Sedimentation Rate 12 mm/hr (0-15)
[2018-04-29 12:04] LABS: Mucous, Urine 1+ /hpf (<or=2+)
[2018-04-29 12:32] LABS: CPK Total, Creatine Kinase 185 U/L (39-308); CRP < 2.90 mg/L (0.0-3.0); Rheumatoid Factor < 10.0 IU/mL (<15); Thyroid Stim Hormone (TSH) 0.58 uIU/mL (0.358-3.74)
[2018-04-29 12:34] LABS: Vitamin D,25 Hydroxy 23.1 ng/mL (29.95-100.01)
[2018-05-02 16:08] LABS: Testosterone, % Free 2.65 % (1.50-4.20); Testosterone, Free 12.56 ng/dL (5.00-21.00)
[2018-05-03 14:23] LABS: CCP IgG Antibodies 6 units (0-19); Testosterone, Total 474 ng/dL (264-916)
== END ==
PROVIDERS: Family Provider Family Medicine; PCP Family Medicine
DX: M06.00 Rheumatoid arthritis without rheumatoid factor, unspecified site (principal); M79.10 Myalgia, unspecified site; E55.9 Vitamin D deficiency, unspecified; R53.83 Other fatigue; R76.0 Raised antibody titer
CPT/HCPCS: 36415; 73120; 73620; 81001; 82306; 82550; 84402; 84403; 84443; 85652; 86038; 86140; 86200; 86225; 86235; 86431

== ENCOUNTER 2018-05-07 09:00 | Outpatient (RCR) | payer OTHER, BC, SELFPAY ==
--- NOTE | 2017-12-16 08:35 | HP.OTEVAL_ITS ---
Patient's Visit Information MICHELLE TOBIAS is a 47 year old M, referred to Occupational Therapy by Foster Limon, , with a diagnosis of right flexor tendon injury. Date of Evaluation: 12/11/17 Occupational Therapist: Kerry Barbosa, OTR/L, CHT - Subjective Subjective: Pt states on August 21, 2017 pt cut his hand on a piece of steel. Pt had tendon involvment. He had to have MRI in mid August and then went to Dr. Limon office. He underwent sx on 2017. sx One stage FDP zone [address] with tendon harvest; FDS synovectomy excision of FDP tendon. - Pain right hand 2 Pain Intensity Range: 1, 3 - ROM MP: right -30 PIP: right MF -15 DIP: right MF-5 ROM Comments: left hand is WNL - Strength Strength Comments: will test later date - Edema PIP: right RF 7.5 left 6.5 - Sensation Index: right 2.83 Middle: right 3.22 Sensation Comments: slight deficits - Hand/Wrist Evaluation Total Score of Pain & Functional Sections: 84 - Goals Goal:100% adherence to protocol: Yes Comment: Dr. Limon Early short arc active Motion protocol zone 1-3 repair Goal:Daily scar massage when approriate: Yes Goal:ROM equal to unaffected hand: Yes Goal:Director Perioperative/Pinch strength at least 75% of unaffected hand: Yes Goal:No pain with affected hand use: Yes Goal:PIP Circumferences equal to unaffected hand: Yes Goal:Full use of affected hand in daily activities including: Yes Goal:Improvement in sensation documented by [place]: Yes Goal:Decrease scar hypersensitivity: Yes - Rehabilitation General Assessment: He underwent sx on 2017. sx One stage FDP zone [address] with tendon harvest; FDS synovectomy excision of FDP tendon. Pt demo need for skilled OTR/L, CHT services 2-3x week for 8 weeks. Therapy will follow early short arc active motion protcol for flexor tendon zone 1-3 protocol, to return pt to PLOF. Rehabilitation Potential: Good - Anticipated Interventions Anticipated Interventions: Early Active Motion, A/AAROM/PROM, Edema Control, Scar Care, Triggerpoint Release, Sensory Retraining, Wound Care, Modalities, Orthoses, Home Program - Visit Plan Frequency: 2-3x /Week Duration: 2 Months TEXT: Thank you for the opportunity to evaluate your patient. For Medicare and Medicare HMO plans, please review the plan of care and approve it. It will need to be FAXED BACK to us at [phone] for Medicare purposes. Please let me know if there are questions or concerns regarding this plan of care. Physician Signature: Date:
--- NOTE | 2017-12-24 13:26 | HP.OTREVAL ---
Foster Limon, , It has been my pleasure to treat MICHELLE TOBIAS over the last 6 visits for right flexor tendon injury. Please see the progress note below for an update on the occupational therapy plan of care! Subjective: pt arrives at 3 week s/p flex. tendon repair- states he is not gettiing movment- states he is doing his scar mtg, PROM and AROM ex. Objective/Function: pt demo with use of IF and RF to assist MF down with the active flex. Therapist noted no flex ability without finger assist at this time- finger feels like it pulls into ext with initiation of digit flex- MCP of MF is moving well along with other fingers. pt is performing ex of protocol with good understanding. pt states prior to sx he as able to bend his finger at the PIP - noted scar hypertrophy with adhesion. Therapy has ed. pt on scar mtg, use of elastomer at night and during the day if able between ex. Therpy is following protocol, and will cont with POC pt to call to schedule apt for to evaluate his repair and advise on any change in tx. Plan Frequency: 2-3x /Week Duration: 2 Months Plan: pt will be 4 weeks no next visit friday - will progress with 4 weeks s/p protocol Anticipated Interventions Anticipated Interventions: Early Active Motion, A/AAROM/PROM, Edema Control, Scar Care, Triggerpoint Release, Sensory Retraining, Wound Care, Modalities, Orthoses, Home Program Please do not hesitate to contact me at [phone] by phone or if you have questions or concerns regarding this new plan of care! Sincerely, Kerry Barbosa, OTR/L, CHT
--- NOTE | 2018-01-07 08:00 | OTREVAL_ITS ---
Foster Limon, , It has been my pleasure to treat MICHELLE TOBIAS over the last 11 visits for right flexor tendon injury. Please see the progress note below for an update on the occupational therapy plan of care! Subjective: pt. arrives and states that he was a little tender in the palm of hand after OT session yesterday. Objective/Function: OT noted that pt. FDS and FDP initate to move when pt. is actively flexing. 86 at MP. 38 at PIP and 42 with blocking. 12 at DIP following was 13 and 14-15 with blocking. pt demo initiation of slight flex of PIP and DIP with blocking ex- Theray is working on AROM, Place and hold, blocking and use of FES to elict further tendon glide to gain functional ROM. Plan Frequency: 2-3x /Week Duration: 2 Months Plan: pt will be 6 weeks on friday - will progress with 6 weeks s/p p rotocol at that time. Anticipated Interventions Anticipated Interventions: Early Active Motion, A/AAROM/PROM, Edema Control, Scar Care, Triggerpoint Release, Sensory Retraining, Wound Care, Modalities, Orthoses, Home Program Please do not hesitate to contact me at [phone] by phone or if you have questions or concerns regarding this new plan of care! Sincerely, Kerry Barbosa, OTR/L, CHT
--- NOTE | 2018-01-29 10:26 | HP.OTREVAL ---
Foster Limon, , It has been my pleasure to treat MICHELLE TOBIAS over the last 19 visits for right flexor tendon injury. Please see the progress note below for an update on the occupational therapy plan of care! Subjective: pt. arrives and states that he is doing okay and he is going to see the MD next thurs. Pt reports he is performing his AROM, scar mtg and blocking ex. and has not notieced change in ROM. Objective/Function: OT noted that pt. had very slight movement of DIP joint when PIP joint was blocked. Therapist is using FES to elict digit flex, as well as blocking and scar mtg. Use of elastomer, cicagel and US. No functional flex at PIP or DIP at this time. Pt returns to for further evaluation. Plan Frequency: 2-3x /Week Duration: 2 Months Plan: PT return to for further evaluation Anticipated Interventions Anticipated Interventions: Early Active Motion, A/AAROM/PROM, Edema Control, Scar Care, Triggerpoint Release, Sensory Retraining, Wound Care, Modalities, Orthoses, Home Program Please do not hesitate to contact me at [phone] by phone or if you have questions or concerns regarding this new plan of care! Sincerely, Kerry Barbosa, OTR/L, CHT
--- NOTE | 2018-04-10 09:32 | HP.OTREVAL ---
Foster Limon MD, It has been my pleasure to treat MICHELLE TOBIAS over the last 4 visits for right flexor tendon injury. Please see the progress note below for an update on the occupational therapy plan of care! Subjective: pt is doing ok- states hand just feels very stiff all the time- states he can get motion-but shortly after he stops workign with his hand it feels stiff again. Objective/Function: PIP 95. DIP 55. right bushwalking guide 55# left 125#. right lateral pinch 20# left 22#. right tripod pinch 18# left 24#-. progressing well would rec'd cont therapy to strength pts right functional bushwalking guide/pinch strength to return pt to PLOF Plan Frequency: 2-3x /Week Duration: 2 Months Plan: pt is progressing well- Anticipated Interventions Anticipated Interventions: Early Active Motion, A/AAROM/PROM, Edema Control, Scar Care, Triggerpoint Release, Sensory Retraining, Wound Care, Modalities, Orthoses, Home Program Please do not hesitate to contact me at [phone] by phone or if you have questions or concerns regarding this new plan of care! Sincerely, Kerry Barbosa, OTR/L, CHT
--- NOTE | 2018-05-07 09:31 | OTREVAL_ITS ---
Foster Limon MD, It has been my pleasure to treat MICHELLE TOBIAS over the last 16 visits for right flexor tendon injury. Please see the progress note below for an update on the occupational therapy plan of care! Subjective: Pt arriveds stating no pain, just the usual stiffness R hand Objective/Function: Pt has made great progress with OT goals. Pt has been educated on R hand HEP and demo good understanding of exercises and scar mngmt techniques 100%x. Pt has been increasing his strength of R hand using BTE mach ine with increased resistance added and even completing R UE strengthening exercises in the gym to increase overall strength R UE for returning back to work. 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 Pt R middle finger flexion has progressed prior to exercises and stretches RMF PIP 0/91, DIP 0/60, after exercises and stretches RMF PIP 0/95, DIP 0/61. Pt completing all BADLs/IADLs independently. Plan for pt to see next week and will wait on confirmation for d/c from OT services. Plan Frequency: 2-3x /Week Duration: 2 Months Plan: See Re-eval Anticipated Interventions Anticipated Interventions: Early Active Motion, A/AAROM/PROM, Edema Control, Scar Care, Triggerpoint Release, Sensory Retraining, Wound Care, Modalities, Orthoses, Home Program Please do not hesitate to contact me at [phone] by phone or if you have questions or concerns regarding this new plan of care! Sincerely, Gillian Rubio
--- NOTE | 2018-05-14 11:58 | HP.OTDCSUM_ITS ---
HP - OT D/C Summary It has been my pleasure to treat MICHELLE TOBIAS under orders from Foster Limon MD, for the diagnosis of right flexor tendon injury for a total of 16 visit(s). Please see the following information for a summary of their discharge status. - Objective Objective/Function: Pt has made great progress with OT goals. Pt has been educated on R hand HEP and demo good understanding of exercises and scar mngmt techniques 100%x. Pt has been increasing his strength of R hand using BTE machi ne with increased resistance added and even completing R UE strengthening exercises in the gym to increase overall strength R UE for returning back to work. 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 Pt R middle finger flexion has progressed prior to exercises and stretches RMF PIP 0/91, DIP 0/60, after exercises and stretches RMF PIP 0/95, DIP 0/61. Pt completing all BADLs/IADLs independently. Pt agreeable and understanding of d/c from OT services - Goals Patient Goals: Regain Mobility, Regain Strength, Decrease Pain, Return to Work, Decrease Swelling/Stiffness, Improve Fine Motor Skills, Use Hand/Wrist/Arm Normally Again, Sleep Better, Decrease Tingling/Numbness Goal:100% adherence to protocol: Yes Goal:Daily scar massage when approriate: Yes Goal:ROM equal to unaffected hand: Yes Goal:Cracker Dough Mixer/Pinch strength at least 75% of unaffected hand: Yes Goal:No pain with affected hand use: Yes Goal:PIP Circumferences equal to unaffected hand: Yes Goal:Full use of affected hand in daily activities including: Yes Goal:Improvement in sensation documented by Crawford-Alexandru: Yes Goal:Decrease scar hypersensitivity: Yes - Plan Plan: D/C OT - D/C Information Discharge Comments: Pt agreeable of D/C OT services and to continue with HEP. If there are questions or concerns regarding this patient's occupational therapy, please fell free to call me at [phone]. Thank you for the referral of this patient. Sincerely, Gillian Rubio
== END 2018-05-07 19:00 | disposition home or self-care (01) ==
LOC: OT 09:00
PROVIDERS: Family Provider Family Medicine; PCP Family Medicine; Visit Provider Orthopaedic Surgery Hand Surgery
DX: S66.801D Unspecified injury of other specified muscles, fascia and tendons at wrist and hand level, right hand, subsequent encounter (principal)
CPT/HCPCS: 97035; 97110; 97140; 97166; 97168; 97530; 97760

== ENCOUNTER → 2018-05-14 09:41 | Outpatient (CLI) | payer BC, SELFPAY ==
[2018-05-15 14:07] LABS: Anti-Centromere B Ab <0.2 AI (0.0-0.9); Anti-Chromatin <0.2 AI (0.0-0.9); Anti-Jo <0.2 AI (0.0-0.9); Anti-Scleroderma-70 AB <0.2 AI (0.0-0.9); RNP Ab <0.2 AI (0.0-0.9); SJOGREN'S Anti-SS-A test < 0.2 AI (0.0-0.9); SJOGREN'S Anti-SS-B test < 0.2 AI (0.0-0.9); Smith Ab <0.2 AI (0.0-0.9)
[2018-05-16 09:31] LABS: Anti-dsDNA Ab <1 IU/mL (0-9)
== END ==
PROVIDERS: Family Provider Family Medicine; PCP Family Medicine
DX: M06.00 Rheumatoid arthritis without rheumatoid factor, unspecified site (principal); M79.10 Myalgia, unspecified site; E55.9 Vitamin D deficiency, unspecified; R53.83 Other fatigue; R76.0 Raised antibody titer
CPT/HCPCS: 86225; 86235

== ENCOUNTER → 2018-07-07 15:44 | Outpatient (CLI) | payer BC, SELFPAY ==
[2018-07-07 15:50] LABS: Bacteria 0 SEEN /hpf (None Seen); Mucous, Urine 0 SEEN /hpf (<or=2+); Red Blood Cells-Urine 0 SEEN /hpf (0-5); Squamous Epithelial Cells - UA 0 SEEN /hpf (0-5); White Blood Cells 0 SEEN /hpf (0-5)
[2018-07-07 17:28] LABS: Color, Urine Yellow (Yellow); Glucose, Dipstick Normal (Normal); Ketone-Dipstick Negative (Negative); Leukocyte Esterase-Dipstick Negative /ul (Negative); Nitrite-Dipstick Negative (Negative); Occult Blood-Urine Negative /ul (Negative); Protein-Dipstick Negative (Negative); Urine Bilirubin Dipstick Negative (Negative); Urine Clarity Clear (Clear); Urine Urobilinogen Normal (Normal)
[2018-07-07 18:16] LABS: CRP < 2.90 mg/L (0.0-3.0)
[2018-07-07 18:18] LABS: Vitamin D,25 Hydroxy 53.8 ng/mL (29.95-100.01)
[2018-07-07 19:36] LABS: Erythrocyte Sedimentation Rate 10 mm/hr (0-15)
== END ==
PROVIDERS: Family Provider Family Medicine; PCP Family Medicine; Referring Provider Internal Medicine Rheumatology; Visit Provider Internal Medicine Rheumatology
DX: M06.00 Rheumatoid arthritis without rheumatoid factor, unspecified site (principal); R80.9 Proteinuria, unspecified; E55.9 Vitamin D deficiency, unspecified
CPT/HCPCS: 36415; 81001; 82306; 85652; 86140

== ENCOUNTER → 2018-08-05 | Outpatient (CLI) | payer BC, SELFPAY ==
[2018-08-05 17:47] LABS: Erythrocyte Sedimentation Rate 21 mm/hr (0-15)
[2018-08-05 18:12] LABS: CRP < 2.90 mg/L (0.0-3.0)
[2018-08-08 15:02] LABS: CCP IgG Antibodies 4 units (0-19)
== END | disposition home or self-care (01) ==
LOC: MTLAB 16:49
PROVIDERS: Family Provider Family Medicine; PCP Family Medicine; Referring Provider Internal Medicine Rheumatology; Visit Provider Internal Medicine Rheumatology
DX: M06.00 Rheumatoid arthritis without rheumatoid factor, unspecified site (principal)
CPT/HCPCS: 36415; 85652; 86140; 86200; 86431

== ENCOUNTER → 2018-09-03 | Outpatient (CLI) | payer BC, SELFPAY ==
[2018-09-03 16:58] LABS: Bacteria 0 SEEN /hpf (None Seen); Mucous, Urine 0 SEEN /hpf (<or=2+); Red Blood Cells-Urine 0 SEEN /hpf (0-5); Squamous Epithelial Cells - UA 0 SEEN /hpf (0-5); White Blood Cells 0 SEEN /hpf (0-5)
[2018-09-03 17:48] LABS: Absolute Neutrophil Count 2.3 X10^3/uL (2.0-7.7); Basophil# 0.04 X10^3/uL; Eosinophil# 0.13 X10^3/uL; Eosinophils% 3.4 % (0-5); Hematocrit 38.8 % (40-54); Lymphocyte % 28.6 % (19-41); Mean Corp Hgb Conc 30.9 g/gl (32-36); Mean Corpuscular Hgb 24.5 pg (27.0-32.0); Mean Corpuscular Volume 79.2 fL (80-94); Monocyte# 0.26 X10^3/uL; Monocyte% 6.8 % (0-10); Neutrophil # 2.31 X10^3/uL (2.7-7.7); Neutrophil % 60.2 % (47-70); Platelet Count 247 K/mm3 (150-450); RBC Distribution Width CV 14.4 % (11.6-14.6); RBC Distribution Width SD 41.2 fl (35.1-43.9); White Blood Count 3.8 K/mm3 (4.4-11.0)
[2018-09-03 17:50] LABS: POSITIVE COUNT NO; POSITIVE DIFFERENTIAL NO; POSITIVE MORPHOLOGY NO
[2018-09-03 17:56] LABS: Erythrocyte Sedimentation Rate 16 mm/hr (0-15)
[2018-09-03 18:01] LABS: Color, Urine Yellow (Yellow); Glucose, Dipstick Normal (Normal); Ketone-Dipstick Negative (Negative); Leukocyte Esterase-Dipstick Negative /ul (Negative); Nitrite-Dipstick Negative (Negative); Occult Blood-Urine Negative /ul (Negative); Protein-Dipstick Negative (Negative); Urine Bilirubin Dipstick Negative (Negative); Urine Clarity Sl. Cloudy (Clear); Urine Urobilinogen Normal (Normal)
[2018-09-03 18:12] LABS: Amorphous Sediment 1+
[2018-09-03 18:49] LABS: AST(SGOT) 24 U/L (15-37); Alanine Aminotransfer ALT/SGPT 26 U/L (16-61); Albumin, Serum 3.7 g/dL (3.2-5.0); Alkaline Phosphatase 70 U/L (45-117); Bilirubin, Direct 0.06 mg/dL (0.00-0.30); CRP < 2.90 mg/L (0.0-3.0); Creatinine, Serum 1.14 mg/dL (0.70-1.30); EST Glomerular Filtration Rate 73 mL/min (>60); Est Glom Filt Rate - Afr Amer 88 mL/min (>60); Globulin 3.4 g/dL (2.2-4.2); Protein, Total 7.1 g/dL (6.4-8.2)
[2018-09-07 14:06] LABS: Complement C3 108 mg/dL (82-167)
[2018-09-08 16:07] LABS: Anti-Smooth Muscle ABS 7 Units (0-19); Thyroglobulin Antibody < 1.0 IU/mL (0.0-0.9); Thyroid Peroxidase AB 15 IU/mL (0-34)
== END | disposition home or self-care (01) ==
LOC: MTLAB 16:18
PROVIDERS: Family Provider Family Medicine; PCP Family Medicine; Referring Provider Internal Medicine Rheumatology; Visit Provider Internal Medicine Rheumatology
DX: R76.0 Raised antibody titer (principal); M06.00 Rheumatoid arthritis without rheumatoid factor, unspecified site
CPT/HCPCS: 36415; 80076; 81001; 82565; 83516; 85025; 85652; 86038; 86140; 86160; 86225; 86235; 86376; 86800

== ENCOUNTER → 2018-09-16 | Outpatient (CLI) | payer BC, SELFPAY ==
[2018-09-16 18:18] LABS: Absolute Lymphocyte Count 1.25 X10^3/ul (0.83-4.51); Absolute Neutrophil Count 2.8 X10^3/uL (2.0-7.7); Basophil# 0.02 X10^3/uL; Basophil% 0.4 % (0-1); Eosinophil# 0.11 X10^3/uL; Eosinophils% 2.4 % (0-5); Hematocrit 37.8 % (40-54); Hemoglobin 11.7 g/dl (13.0-16.5); Lymphocyte # 1.25 X10^3/ul (4.0); Lymphocyte % 27.5 % (19-41); Mean Corpuscular Hgb 24.7 pg (27.0-32.0); Mean Corpuscular Volume 79.9 fL (80-94); Mean Platelet Vol. 9.2 fl (6.2-12.0); Monocyte# 0.38 X10^3/uL; Monocyte% 8.4 % (0-10); Neutrophil # 2.78 X10^3/uL (2.7-7.7); Neutrophil % 61.1 % (47-70); Platelet Count 263 K/mm3 (150-450); RBC Distribution Width CV 14.3 % (11.6-14.6); RBC Distribution Width SD 41.3 fl (35.1-43.9); RET-HE 29.9 pg (30-35); Red Blood Count 4.73 M/mm3 (4.6-6.2); Reticulocyte Count 0.79 % (0.5-1.5); White Blood Count 4.6 K/mm3 (4.4-11.0)
[2018-09-16 18:19] LABS: POSITIVE COUNT NO; POSITIVE DIFFERENTIAL NO; POSITIVE MORPHOLOGY NO
[2018-09-16 18:43] LABS: Vitamin B12 699 pg/mL (211-911); Vitamin D,25 Hydroxy 75.2 ng/mL (29.95-100.01)
[2018-09-16 19:11] LABS: Ferritin 6 ng/mL (26-388); Iron 25 ug/dL (65-175); Iron Binding Capacity,Total 414 ug/dL (250-450); LDH 209 U/L (87-241)
[2018-09-18 11:23] LABS: Haptoglobin 183 mg/dL (34-200)
[2018-09-21 09:42] LABS: Pathologist Review Reviewed
== END | disposition home or self-care (01) ==
LOC: LAB 17:49
PROVIDERS: Family Provider Family Medicine; PCP Family Medicine; Referring Provider Internal Medicine Rheumatology; Visit Provider Internal Medicine Rheumatology
DX: E55.9 Vitamin D deficiency, unspecified (principal); D64.9 Anemia, unspecified
CPT/HCPCS: 36415; 82306; 82607; 82728; 82746; 83010; 83540; 83550; 83615; 85025; 85045; 86880

== ENCOUNTER → 2018-11-12 | Outpatient (CLI) | payer BC, SELFPAY ==
[2018-11-12 18:24] LABS: Hematocrit 42.6 % (40-54); Hemoglobin 13.5 g/dL (13.0-16.5); Mean Corp Hgb Conc 31.7 g/dL (32-36); Mean Corpuscular Hgb 26.5 pg (27.0-32.0); Mean Corpuscular Volume 83.7 fL (80-94); Mean Platelet Vol. 9.2 fl (6.2-12.0); Platelet Count 194 K/mm3 (150-450); RBC Distribution Width CV 16.1 % (11.6-14.6); RBC Distribution Width SD 49.5 fl (35.1-43.9); Red Blood Count 5.09 M/mm3 (4.6-6.2); White Blood Count 3.4 K/mm3 (4.4-11.0)
[2018-11-12 18:39] LABS: Iron 61 ug/dL (65-175); Iron Binding Capacity,Total 344 ug/dL (250-450); PERCENT IRON SATURATION 17.7 % (15.0-55.0)
== END | disposition home or self-care (01) ==
LOC: LAB 18:11
PROVIDERS: Family Provider Family Medicine; PCP Family Medicine; Visit Provider Family Medicine
DX: D50.9 Iron deficiency anemia, unspecified (principal)
CPT/HCPCS: 36415; 83540; 83550; 85027

== ENCOUNTER → 2018-12-07 16:42 | Outpatient (CLI) | payer BC, SELFPAY ==
[2018-12-09 15:33] LABS: Anti-Centromere B Ab <0.2 AI (0.0-0.9); Anti-Chromatin <0.2 AI (0.0-0.9); Anti-Jo <0.2 AI (0.0-0.9); Anti-Scleroderma-70 AB <0.2 AI (0.0-0.9); RNP Ab 0.2 AI (0.0-0.9); SJOGREN'S Anti-SS-A test < 0.2 AI (0.0-0.9); SJOGREN'S Anti-SS-B test < 0.2 AI (0.0-0.9); Smith Ab <0.2 AI (0.0-0.9)
[2018-12-09 15:55] LABS: Anti-dsDNA Ab <1 IU/mL (0-9)
== END ==
PROVIDERS: Family Provider Family Medicine; PCP Family Medicine; Referring Provider Internal Medicine Rheumatology; Visit Provider Internal Medicine Rheumatology
DX: R76.0 Raised antibody titer (principal)
CPT/HCPCS: 36415; 86225; 86226; 86235

== ENCOUNTER → 2019-01-07 16:03 | Outpatient (CLI) | payer BC, SELFPAY ==
[2019-01-07 17:26] LABS: Erythrocyte Sedimentation Rate 7 mm/hr (0-15)
[2019-01-07 18:12] LABS: CRP < 2.90 mg/L (0.0-3.0)
[2019-01-11 16:32] LABS: Anti-Nuclear Antibody Test Negative (.)
== END ==
PROVIDERS: Family Provider Family Medicine; PCP Family Medicine; Referring Provider Internal Medicine Rheumatology; Visit Provider Internal Medicine Rheumatology
DX: R76.0 Raised antibody titer (principal); E55.9 Vitamin D deficiency, unspecified
CPT/HCPCS: 82306; 85652; 86038; 86140

== ENCOUNTER → 2019-02-11 16:47 | Outpatient (CLI) | payer BC, SELFPAY ==
[2019-02-11 17:11] LABS: Hematocrit 44.1 % (40-54); Hemoglobin 14.6 g/dL (13.0-16.5); Mean Corp Hgb Conc 33.1 g/dL (32-36); Mean Corpuscular Hgb 28.6 pg (27.0-32.0); Mean Corpuscular Volume 86.5 fL (80-94); Mean Platelet Vol. 9.4 fl (6.2-12.0); Platelet Count 186 K/mm3 (150-450); RBC Distribution Width CV 12.8 % (11.6-14.6); RBC Distribution Width SD 40.1 fl (35.1-43.9); White Blood Count 4.4 K/mm3 (4.4-11.0)
[2019-02-11 17:42] LABS: Ferritin 39 ng/mL (26-388); Iron 72 ug/dL (65-175); Iron Binding Capacity,Total 333 ug/dL (250-450); PERCENT IRON SATURATION 21.6 % (15.0-55.0)
[2019-02-12 11:34] LABS: Cholesterol 169 mg/dL (200); High Density Lipoprotein 49 mg/dL; Thyroid Stim Hormone (TSH) 0.59 uIU/mL (0.358-3.74); Triglycerides 66 mg/dL; Very Low Density Lipoprotein 13 mg/dL (5-40)
== END ==
PROVIDERS: Family Provider Family Medicine; PCP Family Medicine; Referring Provider Family Medicine; Visit Provider Family Medicine
DX: Z00.00 Encounter for general adult medical examination without abnormal findings (principal); D50.9 Iron deficiency anemia, unspecified
CPT/HCPCS: 36415; 80061; 82728; 83540; 83550; 84443; 85027

== ENCOUNTER → 2019-05-24 12:41 | Outpatient (CLI) | payer BC, SELFPAY ==
[2019-05-24 12:48] LABS: Bacteria 0 SEEN /hpf (None Seen); Mucous, Urine 0 SEEN /hpf (<or=2+); Red Blood Cells-Urine 0 SEEN /hpf (0-5); Squamous Epithelial Cells - UA 0 SEEN /hpf (0-5); White Blood Cells 0 SEEN /hpf (0-5)
[2019-05-24 14:18] LABS: Absolute Lymphocyte Count 1.41 X10^3/uL (0.83-4.51); Absolute Neutrophil Count 3.6 X10^3/uL (2.0-7.7); Basophil# 0.04 X10^3/uL; Basophil% 0.7 % (0-1); Color, Urine Yellow (Yellow); Eosinophil# 0.12 X10^3/uL; Eosinophils% 2.1 % (0-5); Glucose, Dipstick Normal (Normal); Hematocrit 49.1 % (40-54); Hemoglobin 16.3 g/dL (13.0-16.5); Ketone-Dipstick Negative (Negative); Leukocyte Esterase-Dipstick Negative /ul (Negative); Lymphocyte # 1.41 X10^3/ul (4.0); Mean Corp Hgb Conc 33.2 g/dL (32-36); Mean Corpuscular Hgb 29.2 pg (27.0-32.0); Mean Platelet Vol. 9.7 fl (6.2-12.0); Monocyte# 0.48 X10^3/uL; Monocyte% 8.5 % (0-10); NRBC Flagged by Analyzer 0 % (0-5); Neutrophil # 3.57 X10^3/uL (2.7-7.7); Neutrophil % 63.5 % (47-70); Nitrite-Dipstick Negative (Negative); Occult Blood-Urine Negative /ul (Negative); Platelet Count 222 K/mm3 (150-450); Protein-Dipstick Negative (Negative); RBC Distribution Width CV 12.1 % (11.6-14.6); RBC Distribution Width SD 38.5 fl (35.1-43.9); Red Blood Count 5.58 M/mm3 (4.6-6.2); Urine Bilirubin Dipstick Negative (Negative); Urine Clarity Clear (Clear); Urine Urobilinogen Normal (Normal); White Blood Count 5.6 K/mm3 (4.4-11.0)
[2019-05-24 14:39] LABS: AST(SGOT) 18 U/L (15-37); Alanine Aminotransfer ALT/SGPT 33 U/L (16-61); Albumin, Serum 3.5 g/dL (3.2-5.0); Alkaline Phosphatase 77 U/L (45-117); Bilirubin, Direct 0.07 mg/dL (0.00-0.30); Creatinine, Serum 1.08 mg/dL (0.70-1.30); EST Glomerular Filtration Rate 77 mL/min (>60); Est Glom Filt Rate - Afr Amer 94 mL/min (>60); Globulin 3.9 g/dL (2.2-4.2); Protein, Total 7.4 g/dL (6.4-8.2)
[2019-05-24 14:41] LABS: Vitamin D,25 Hydroxy 76.8 ng/mL
[2019-05-26 11:37] LABS: Complement C3 132 mg/dL (82-167)
[2019-05-26 16:35] LABS: Anti-dsDNA Ab <1 IU/mL (0-9)
== END ==
PROVIDERS: PCP Family Medicine; Referring Provider Internal Medicine Rheumatology; Visit Provider Internal Medicine Rheumatology
DX: E55.9 Vitamin D deficiency, unspecified (principal); R76.0 Raised antibody titer
CPT/HCPCS: 36415; 80076; 81001; 82306; 82565; 85025; 86160; 86225

== ENCOUNTER → 2019-08-10 13:31 | Outpatient (CLI) | payer BC, SELFPAY ==
--- NOTE | 2019-08-10 13:48 | RAD_ITS ---
STUDY: X-RAY - PELVIS AND RIGHT HIP REASON FOR EXAM: Right hip pain for one year, no specific injury. TECHNIQUE: 2 views of the pelvis and hip. COMPARISON: None. FINDINGS: There is postsurgical artifact in the pelvis and postsurgical changes of the lower lumbar spine. Normal bilateral iliac wings, sacroiliac joints and visualized sacrum. Normal bilateral superior and inferior pubic rami. Normal pubic symphysis. Normal bilateral ischial tuberosities. Normal visualized femoral head. Normal acetabulum. Normal hip joint. RAD/HIP, UNI W/ Pelvis 2-3 Views IMPRESSION: Unremarkable x-ray examination of the right hip. Electronically Signed: Reggie Don MD at 14:27 EDT Tel , Service support ,
--- NOTE | 2019-08-10 13:48 | RAD_ITS ---
STUDY: X-RAY - LEFT SHOULDER REASON FOR EXAM: Left shoulder pain for at least one year, limited range of motion, no specific injury. TECHNIQUE: 4 view(s) of the shoulder. COMPARISON: None. FINDINGS: Normal glenohumeral articulation. There is acromioclavicular joint space narrowing. Normal acromion. Normal humeral head and visualized proximal humerus. The soft tissue structures are unremarkable. Normal visualized pulmonary apex. RAD/Shoulder min 2 Views IMPRESSION: Acromioclavicular arthrosis. Electronically Signed: Reggie Don MD at 14:40 EDT Tel , Service support ,
[2019-08-10 14:05] LABS: Erythrocyte Sedimentation Rate 5 mm/hr (0-15)
[2019-08-10 14:32] LABS: CRP < 2.90 mg/L (0.0-3.0)
== END ==
PROVIDERS: PCP Family Medicine; Referring Provider Internal Medicine Rheumatology; Visit Provider Internal Medicine Rheumatology
DX: M25.512 Pain in left shoulder (principal); M25.551 Pain in right hip; R76.0 Raised antibody titer
CPT/HCPCS: 36415; 73030; 73502; 85652; 86140

== ENCOUNTER → 2019-08-20 09:54 | Outpatient (CLI) | payer BC, SELFPAY ==
[2019-08-20 10:00] LABS: Bacteria 0 SEEN /hpf (None Seen); Mucous, Urine 0 SEEN /hpf (<or=2+); Red Blood Cells-Urine 0 SEEN /hpf (0-5); Squamous Epithelial Cells - UA 0 SEEN /hpf (0-5)
[2019-08-20 11:32] LABS: Erythrocyte Sedimentation Rate 7 mm/hr (0-15)
[2019-08-20 11:35] LABS: Absolute Lymphocyte Count 1.14 X10^3/uL (0.83-4.51); Absolute Neutrophil Count 2.2 X10^3/uL (2.0-7.7); Basophil# 0.02 X10^3/uL; Basophil% 0.5 % (0-1); Eosinophil# 0.13 X10^3/uL; Eosinophils% 3.4 % (0-5); Hematocrit 44.2 % (40-54); Hemoglobin 14.7 g/dL (13.0-16.5); Lymphocyte # 1.14 X10^3/ul (4.0); Lymphocyte % 29.7 % (19-41); Mean Corp Hgb Conc 33.3 g/dL (32-36); Mean Corpuscular Hgb 29.9 pg (27.0-32.0); Mean Platelet Vol. 10.2 fl (6.2-12.0); Monocyte# 0.38 X10^3/uL; Monocyte% 9.9 % (0-10); NRBC Flagged by Analyzer 0 % (0-5); Neutrophil # 2.16 X10^3/uL (2.7-7.7); Neutrophil % 56.2 % (47-70); Platelet Count 221 K/mm3 (150-450); RBC Distribution Width SD 39.5 fl (35.1-43.9); Red Blood Count 4.91 M/mm3 (4.6-6.2); White Blood Count 3.8 K/mm3 (4.4-11.0)
[2019-08-20 12:25] LABS: AST(SGOT) 15 U/L (15-37); Alanine Aminotransfer ALT/SGPT 27 U/L (16-61); Albumin, Serum 3.3 g/dL (3.2-5.0); Alkaline Phosphatase 62 U/L (45-117); Bilirubin, Direct 0.13 mg/dL (0.00-0.30); CPK Total, Creatine Kinase 135 U/L (39-308); CRP < 2.90 mg/L (0.0-3.0); Creatinine, Serum 1.11 mg/dL (0.70-1.30); EST Glomerular Filtration Rate 75 mL/min (>60); Est Glom Filt Rate - Afr Amer 91 mL/min (>60); Globulin 3.3 g/dL (2.2-4.2); Protein, Total 6.6 g/dL (6.4-8.2); Thyroid Stim Hormone (TSH) 0.48 uIU/mL (0.358-3.74)
[2019-08-20 12:29] LABS: Color, Urine Straw (Yellow); Glucose, Dipstick Normal (Normal); Ketone-Dipstick Negative (Negative); Leukocyte Esterase-Dipstick Negative /ul (Negative); Nitrite-Dipstick Negative (Negative); Occult Blood-Urine Negative /ul (Negative); Protein-Dipstick Negative (Negative); Urine Bilirubin Dipstick Negative (Negative); Urine Clarity Clear (Clear); Urine Urobilinogen Normal (Normal); Urine pH 6.5 (5.0 - 8.0)
[2019-08-20 12:36] LABS: White Blood Cells 0-5 SEEN /hpf (0-5)
[2019-08-20 16:07] LABS: Vitamin D,25 Hydroxy 64.6 ng/mL
[2019-08-23 16:32] LABS: Anti-dsDNA Ab <1 IU/mL (0-9)
[2019-09-15 20:28] LABS: Complement C3 102
== END ==
PROVIDERS: PCP Family Medicine; Referring Provider Internal Medicine Rheumatology; Visit Provider Internal Medicine Rheumatology
DX: R76.0 Raised antibody titer (principal); E55.9 Vitamin D deficiency, unspecified; R53.83 Other fatigue; M79.10 Myalgia, unspecified site
CPT/HCPCS: 36415; 80076; 81001; 82306; 82550; 82565; 84443; 85025; 85652; 86140; 86160; 86225

== ENCOUNTER → 2019-11-12 16:34 | Outpatient (CLI) | payer BC, SELFPAY ==
[2019-11-12 16:39] LABS: Bacteria 0 SEEN /hpf (None Seen); Mucous, Urine 0 SEEN /hpf (<or=2+); Red Blood Cells-Urine 0 SEEN /hpf (0-5); Squamous Epithelial Cells - UA 0 SEEN /hpf (0-5); White Blood Cells 0 SEEN /hpf (0-5)
[2019-11-12 17:27] LABS: Color, Urine Yellow (Yellow); Glucose, Dipstick Normal (Normal); Ketone-Dipstick Negative (Negative); Leukocyte Esterase-Dipstick Negative /ul (Negative); Nitrite-Dipstick Negative (Negative); Occult Blood-Urine Negative /ul (Negative); Protein-Dipstick Negative (Negative); Urine Bilirubin Dipstick Negative (Negative); Urine Clarity Clear (Clear); Urine Urobilinogen Normal (Normal)
[2019-11-12 17:29] LABS: Absolute Lymphocyte Count 1.45 X10^3/uL (0.83-4.51); Absolute Neutrophil Count 2.4 X10^3/uL (2.0-7.7); Basophil# 0.03 X10^3/uL; Basophil% 0.7 % (0-1); Eosinophil# 0.11 X10^3/uL; Eosinophils% 2.5 % (0-5); Hematocrit 44.1 % (40-54); Lymphocyte # 1.45 X10^3/ul (4.0); Lymphocyte % 33.5 % (19-41); Mean Corpuscular Hgb 29.9 pg (27.0-32.0); Mean Corpuscular Volume 87.8 fL (80-94); Mean Platelet Vol. 9.7 fl (6.2-12.0); Monocyte# 0.35 X10^3/uL; Monocyte% 8.1 % (0-10); NRBC Flagged by Analyzer 0 % (0-5); Neutrophil # 2.39 X10^3/uL (2.7-7.7); Neutrophil % 55.2 % (47-70); Platelet Count 203 K/mm3 (150-450); RBC Distribution Width CV 11.7 % (11.6-14.6); RBC Distribution Width SD 37.4 fl (35.1-43.9); Red Blood Count 5.02 M/mm3 (4.6-6.2); White Blood Count 4.3 K/mm3 (4.4-11.0)
[2019-11-12 17:41] LABS: Vitamin D,25 Hydroxy 78.4 ng/mL
[2019-11-12 17:57] LABS: AST(SGOT) 20 U/L (15-37); Alanine Aminotransfer ALT/SGPT 28 U/L (16-61); Albumin, Serum 3.7 g/dL (3.2-5.0); Alkaline Phosphatase 62 U/L (45-117); Bilirubin, Direct 0.11 mg/dL (0.00-0.30); CRP < 2.90 mg/L (0.0-3.0); Creatinine, Serum 1.23 mg/dL (0.70-1.30); EST Glomerular Filtration Rate 67 mL/min (>60); Est Glom Filt Rate - Afr Amer 80 mL/min (>60); Globulin 3.4 g/dL (2.2-4.2); Protein, Total 7.1 g/dL (6.4-8.2)
[2019-11-12 18:03] LABS: Erythrocyte Sedimentation Rate 4 mm/hr (0-15)
== END ==
PROVIDERS: PCP Family Medicine; Referring Provider Internal Medicine Rheumatology; Visit Provider Internal Medicine Rheumatology
DX: R76.0 Raised antibody titer (principal); E55.9 Vitamin D deficiency, unspecified; Z79.899 Other long term (current) drug therapy
CPT/HCPCS: 36415; 80076; 81001; 82306; 82565; 85025; 85652; 86140; 86160; 86226

== ENCOUNTER → 2020-02-29 15:55 | Outpatient (CLI) | payer BC, SELFPAY ==
[2020-02-29 16:10] LABS: Bacteria 0 SEEN /hpf (None Seen); Mucous, Urine 0 SEEN /hpf (<or=2+); Red Blood Cells-Urine 0 SEEN /hpf (0-5); White Blood Cells 0 SEEN /hpf (0-5)
[2020-02-29 17:22] LABS: Color, Urine Straw (Yellow); Glucose, Dipstick Normal (Normal); Ketone-Dipstick Negative (Negative); Leukocyte Esterase-Dipstick Negative /ul (Negative); Nitrite-Dipstick Negative (Negative); Occult Blood-Urine Negative /ul (Negative); Protein-Dipstick Negative (Negative); Urine Bilirubin Dipstick Negative (Negative); Urine Clarity Sl. Cloudy (Clear); Urine Urobilinogen Normal (Normal); Urine pH 6.5 (5.0 - 8.0)
[2020-02-29 17:31] LABS: Amorphous Sediment 1+ URATE; Squamous Epithelial Cells - UA 0-5 SEEN /hpf (0-5)
[2020-02-29 17:33] LABS: Absolute Lymphocyte Count 1.31 X10^3/uL (0.83-4.51); Absolute Neutrophil Count 2.4 X10^3/uL (2.0-7.7); Basophil# 0.05 X10^3/uL; Basophil% 1.2 % (0-1); Eosinophil# 0.13 X10^3/uL; Hematocrit 43.4 % (40-54); Hemoglobin 14.9 g/dL (13.0-16.5); Lymphocyte # 1.31 X10^3/ul (4.0); Lymphocyte % 30.7 % (19-41); Mean Corp Hgb Conc 34.3 g/dL (32-36); Mean Corpuscular Volume 87.5 fL (80-94); Mean Platelet Vol. 9.5 fl (6.2-12.0); Monocyte% 9.4 % (0-10); NRBC Flagged by Analyzer 0 % (0-5); Neutrophil # 2.37 X10^3/uL (2.7-7.7); Neutrophil % 55.5 % (47-70); Platelet Count 245 K/mm3 (150-450); RBC Distribution Width CV 12.1 % (11.6-14.6); RBC Distribution Width SD 38.9 fl (35.1-43.9); Red Blood Count 4.96 M/mm3 (4.6-6.2); White Blood Count 4.3 K/mm3 (4.4-11.0)
[2020-02-29 18:03] LABS: AST(SGOT) 18 U/L (15-37); Alanine Aminotransfer ALT/SGPT 29 U/L (16-61); Albumin, Serum 3.9 g/dL (3.2-5.0); Alkaline Phosphatase 59 U/L (45-117); Bilirubin, Direct 0.11 mg/dL (0.00-0.30); CRP < 2.90 mg/L (0.0-3.0); Creatinine, Serum 1.05 mg/dL (0.70-1.30); EST Glomerular Filtration Rate 80 mL/min (>60); Est Glom Filt Rate - Afr Amer 96 mL/min (>60); Globulin 3.2 g/dL (2.2-4.2); Protein, Total 7.1 g/dL (6.4-8.2)
[2020-02-29 18:08] LABS: Erythrocyte Sedimentation Rate 6 mm/hr (0-15)
[2020-03-02 11:31] LABS: Complement C3 105 mg/dL (82-167)
[2020-03-02 15:12] LABS: Anti-dsDNA Ab <1 IU/mL (0-9)
== END ==
PROVIDERS: PCP Family Medicine; Visit Provider Internal Medicine Rheumatology
DX: R76.0 Raised antibody titer (principal); M25.549 Pain in joints of unspecified hand
CPT/HCPCS: 36415; 80076; 81001; 82565; 85025; 85652; 86140; 86160; 86225

== ENCOUNTER → 2020-05-01 16:01 | Outpatient (CLI) | payer BC, SELFPAY | PROVIDERS: PCP Family Medicine; Referring Provider Internal Medicine Rheumatology; Visit Provider Internal Medicine Rheumatology | DX: E55.9 Vitamin D deficiency, unspecified (principal) | CPT/HCPCS: 36415; 82306 ==

== ENCOUNTER → 2020-06-07 15:39 | Outpatient (CLI) | payer BC, SELFPAY ==
[2020-06-07 15:50] LABS: Bacteria 0 SEEN /hpf (None Seen); Mucous, Urine 0 SEEN /hpf (<or=2+); Red Blood Cells-Urine 0 SEEN /hpf (0-5); Squamous Epithelial Cells - UA 0 SEEN /hpf (0-5); White Blood Cells 0 SEEN /hpf (0-5)
[2020-06-07 17:55] LABS: Absolute Lymphocyte Count 1.23 X10^3/uL (0.83-4.51); Absolute Neutrophil Count 2.6 X10^3/uL (2.0-7.7); Basophil# 0.05 X10^3/uL; Basophil% 1.1 % (0-1); Eosinophil# 0.14 X10^3/uL; Eosinophils% 3.2 % (0-5); Hematocrit 42.1 % (40-54); Hemoglobin 14.5 g/dL (13.0-16.5); Lymphocyte # 1.23 X10^3/ul (4.0); Lymphocyte % 28.1 % (19-41); Mean Corp Hgb Conc 34.4 g/dL (32-36); Mean Corpuscular Hgb 30.8 pg (27.0-32.0); Mean Corpuscular Volume 89.4 fL (80-94); Mean Platelet Vol. 10.1 fl (6.2-12.0); Monocyte# 0.39 X10^3/uL; Monocyte% 8.9 % (0-10); NRBC Flagged by Analyzer 0 % (0-5); Neutrophil # 2.57 X10^3/uL (2.7-7.7); Neutrophil % 58.7 % (47-70); Platelet Count 224 K/mm3 (150-450); RBC Distribution Width CV 11.8 % (11.6-14.6); RBC Distribution Width SD 38.6 fl (35.1-43.9); Red Blood Count 4.71 M/mm3 (4.6-6.2); White Blood Count 4.4 K/mm3 (4.4-11.0)
[2020-06-07 17:57] LABS: Color, Urine Yellow (Yellow); Glucose, Dipstick Normal (Normal); Ketone-Dipstick Negative (Negative); Leukocyte Esterase-Dipstick Negative /ul (Negative); Nitrite-Dipstick Negative (Negative); Occult Blood-Urine Negative /ul (Negative); Protein-Dipstick Negative (Negative); Urine Bilirubin Dipstick Negative (Negative); Urine Clarity Clear (Clear); Urine Urobilinogen Normal (Normal); Urine pH 6.5 (5.0 - 8.0)
[2020-06-07 18:34] LABS: Erythrocyte Sedimentation Rate 2 mm/hr (0-20)
[2020-06-07 18:35] LABS: AST(SGOT) 16 U/L (15-37); Alanine Aminotransfer ALT/SGPT 27 U/L (16-61); Albumin, Serum 3.8 g/dL (3.2-5.0); Alkaline Phosphatase 59 U/L (45-117); Bilirubin, Direct 0.07 mg/dL (0.00-0.30); CRP < 2.90 mg/L (0.0-3.0); Creatinine, Serum 1.09 mg/dL (0.70-1.30); EST Glomerular Filtration Rate 76 mL/min (>60); Est Glom Filt Rate - Afr Amer 92 mL/min (>60); Globulin 2.9 g/dL (2.2-4.2); Protein, Total 6.7 g/dL (6.4-8.2)
[2020-06-09 13:41] LABS: Complement C3 84 mg/dL (82-167)
[2020-06-12 09:07] LABS: Anti-Centromere B Ab <0.2 AI (0.0-0.9); Anti-Chromatin <0.2 AI (0.0-0.9); Anti-Jo <0.2 AI (0.0-0.9)
[2020-06-12 10:58] LABS: Anti-Nuclear Antibody Test Negative (.); Anti-dsDNA Ab <1 IU/mL (0-9)
== END ==
PROVIDERS: PCP Family Medicine; Referring Provider Internal Medicine Rheumatology; Visit Provider Internal Medicine Rheumatology
DX: R76.0 Raised antibody titer (principal); Z79.899 Other long term (current) drug therapy
CPT/HCPCS: 36415; 80076; 81001; 82565; 85025; 85652; 86038; 86140; 86160; 86225; 86235

== ENCOUNTER → 2022-06-20 | Outpatient (CLI) | payer OTHER, SELFPAY ==
--- NOTE | 2022-06-20 16:45 | MRI_ITS ---
STUDY: MRI BRAIN WITH AND WITHOUT CONTRAST (ATTENTION INTERNAL AUDITORY CANALS - I.A.C.''s) REASON FOR EXAM: Male, 51 years old. ASYMMETRIC HEARING LOSS, IMBALANCE TECHNIQUE: Standardized multiplanar fat and water weighted pulse sequences were obtained. w w/o of 17ml clariscan contrast material was administered intravenously for the contrast portion of the examination. COMPARISON: None. FINDINGS: Normal bilateral temporal bones. Normal bilateral internal auditory canals. There is no demonstrated intracanalicular or cisternal vestibular schwannoma (acoustic neuroma). There is no enhancement of the bilateral VIIth or VIIIth cranial nerves. Normal bilateral cochlea, vestibules and semicircular canals. Normal size of the ventricles and extra-axial spaces for the patient''s age. Normal white matter tracts of the supratentorial brain. Normal bilateral basal ganglia. Normal thalami. Normal flow voids within the major intracranial circulation suggesting patency by spin echo criteria. Normal venous enhancement. There is no enhancing intra-axial or extra-axial abnormality. There is no extra-axial fluid accumulation. Normal sella turcica, pituitary gland, infundibular stalk, optic chiasm and hypothalamus. Normal tectal plate and pineal gland. Normal midbrain, hubert and medulla. Normal cerebellum. Normal basal cisterns. No demonstrated orbital abnormality, within the constraints of a routine brain study. There is mucoperiosteal inflammatory disease of the paranasal sinuses consistent with mild chronic sinusitis. Normal calvarium and skull base. Normal visualized soft tissue structures. Normal visualized upper cervical spine. MRI/Brain W/WO Contrast IMPRESSION: No acute findings on this unenhanced and enhanced MRI of the bilateral internal auditory canals (I.A.C''s). Electronically Signed: Kiran Gomez MD at 18:51 EDT ,
== END | disposition home or self-care (01) ==
DX: H91.92 Unspecified hearing loss, left ear (principal)
CPT/HCPCS: 70553; A9575

== ENCOUNTER 2023-02-20 23:53 | Emergency (ER) | payer OTHER, SELFPAY ==
[2023-02-20 23:55] VITALS: BP 126/92; PULSE 80; RESP 18; TEMP 36.8; O2SAT 100
--- NOTE | 2023-02-21 00:20 | CT_ITS ---
STUDY: CT ABDOMEN AND PELVIS WITHOUT CONTRAST REASON FOR EXAM: Male, 52 years old. Pain RADIATION DOSAGE (If Supplied By Facility): CTDIvol = ( 7.22 ) mGy, DLP = ( 391.28 ) mGycm TECHNIQUE: Transaxial images were obtained from the dome of the diaphragm to the symphysis pubis without oral contrast, and without intravenous contrast. Sagittal and coronal images were reconstructed. Individualized dose optimization techniques were used for this CT. COMPARISON: None. FINDINGS: The visualized lung bases are unremarkable. The visualized portions of the heart are within normal limits. Normal liver. Normal gallbladder and extrahepatic biliary system. Normal spleen. Normal pancreas. Normal bilateral adrenal glands. There is mild right hydronephrosis. There is mild right hydroureter. There is a visualized 2.5 mm stone just inside the bladder. Normal left kidney. There is a distended appearance of the stomach with food and fluid contents. There are mildly distended loops of small bowel. There is a partly decompressed appearance of the colon. The appendix is visualized and appears normal. Normal abdominal aorta. Normal inferior vena cava. Normal retroperitoneum. There is mild thickening of the wall the bladder. Particular the bladder base. There is a punctate stone to the right of midline in the bladder suggesting recently passed stone from the right kidney. There is mild right hydronephrosis. There is mild right hydroureter. Normal visualized prostate gland. Prior hernia repair in the groin region. No There is a spinal fusion L4-L5 with disc spacer material. The visualized left-sided baclofen polyp with leads extending into the area of L1-L2. CT/Abdomen/Pelvis without Cont IMPRESSION: Mild right hydronephrosis mild right hydroureter secondary to a recently passed stone into the right side of the bladder at the level of the ureterovesicular junction measuring approximately 2.5 mm. Mild ileus. Mild wall thickening of the bladder could consider cystitis. Postoperative change status post lower pelvic hernia repair. Electronically Signed: Shayna Moeller MD at 1:40 EST ,
--- NOTE | 2023-02-21 00:24 | EX.ED.DYSGE1 ---
HPI History of Present Illness Chief Complaint: Flank Pain Informant: patient and spouse/S.O. Narrative Narrative: Patient complains of right flank pain. Patient felt fine all day. He went out to eat dinner. He had no problems. About 2-2 and half hours ago he got sudden onset of right flank pain. It does radiate a little bit down to the front on the right. He has had nausea vomiting. He cannot get comfortable. No syncope. He had an episode like this in August but was not evaluated. He does not know if he has had kidney stones before. He has not noted any blood in the urine. No burning. No fevers or chills. No trauma. [facility] Medical History Arthritis Difficulty balancing HTN (hypertension) Knee pain Migraines Stomach ulcer Home Medications abatacept 125 mg/mL subcutaneous auto-injector subcut 28 days ##4 09/23/17 [History Last Taken Unknown] amitriptyline 50 mg tablet PO 30 days ##30 09/23/17 [History Last Taken Unknown] folic acid 1 mg tablet PO 90 days ##180 09/23/17 [History Last Taken Unknown] leucovorin calcium 15 mg tablet PO 90 days ##12 09/23/17 [History Last Taken Unknown] methotrexate sodium 25 mg/mL injection solution IM 28 days ##4 09/23/17 [History Last Taken Unknown] omeprazole 40 mg capsule,delayed release PO 90 days ##90 09/23/17 [History Last Taken Unknown] sumatriptan succinate 100 mg tablet PO 9 days ##9 09/23/17 [History Last Taken Unknown] ondansetron 4 mg disintegrating tablet 4 mg PO Q8H PRN PRN Nausea #10 tabs 02/21/23 [Rx Last Taken Unknown] oxycodone-acetaminophen 5 mg-325 mg tablet 1 tab PO Q6H PRN PRN Pain 3 days #12 TABLETS 02/21/23 [Rx Last Taken Unknown] tamsulosin 0.4 mg capsule (Flomax) 0.4 mg PO DAILY #7 caps 02/21/23 [Rx Last Taken Unknown] Allergy/AdvReac Type Severity Reaction Status Date / Time Sulfa (Sulfonamide Allergy Unknown Verified 02/20/23 23:55 Antibiotics) sulfamethoxazole Allergy Unknown Verified 02/20/23 23:55 [From Septra] trimethoprim [From Septra] Allergy Unknown Verified 02/20/23 23:55 gabapentin AdvReac Nausea/Vom/ Verified 02/20/23 23:55 Diarrhea pregabalin [From Lyrica] AdvReac Nausea/Vom/ Verified 02/20/23 23:55 Diarrhea Surgical History History of knee surgery History of spinal surgery Social History Smoking Status: Never smoker alcohol intake: never ROS ROS ED ROS Narrative A complete review of systems was performed and is negative except as documented in the history of present illness. Some specific details below. Constitutional: No recent fevers or chills. No malaise EYE: No visual complaints or pain. ENT: No difficulty swallowing. No swelling. No pain. No history of GERD CV: No chest pain or palpitations. Respiratory: No dyspnea. No hemoptysis. No difficulty taking breaths. GI: Please see history of present illness. : No frequency dysuria or hematuria. No known history of kidney stones. Musculoskeletal: No recent trauma. No pains. Skin: No rash. Nondiaphoretic. Neuro: No weakness or numbness. Endocrine: No polyuria or polydipsia. EXAM Physical Exam Narrative Exam Narrative: CONSTITUTIONAL: Patient is nontoxic in appearance. But the patient does look uncomfortable. Patient has trouble sitting still. HEENT: No notable trauma. Mucous membranes moist. EYES: No conjunctival injection. No proptosis. No icterus. CARDIOVASCULAR: Regular rate. Regular rhythm. No notable murmur. No JVD. RESPIRATORY: No respiratory distress. Breathing is unlabored. No wheezes. No rhonchi. No rales. No pain with a deep breath. GASTROINTESTINAL: Not distended. Bowel sounds are normal. No tenderness despite having pain in the right lower quadrant. No guarding. No rebound. No palpable mass. No bruit. GENITOURINARY: No tenderness over the bladder. He does have some mild right-sided CVA tenderness. MUSCULOSKELETAL: Atraumatic. No peripheral edema. NEUROLOGICAL: Patient is alert and appropriate. No focal deficit noted. SKIN: No noted rashes. No diaphoresis. PSYCHIATRIC: Patient is calm. Mood is appropriate. Const Vital Signs: 02/20/23 23:55 Temperature 98.2 F Temperature Source Temporal Pulse Rate 80 Respiratory Rate 18 Blood Pressure 126/92 H Blood Pressure Mean 103 Pulse Ox 100 Oxygen Delivery Method Room Air MDM MDM MDM Narrative Medical decision making narrative: Patient CBC is normal. Patient's electrolytes show a mild rise of his creatinine to 1.54. He is given IV fluids here. Potassium is slightly low at 3.2. This should self-correct. Glucose was also minimally up at 151 but the patient has just eaten recently. Since urine some amorphous sediment and few bacteria but no white cells. No notable red cells. My independent interpretation of the patient's CT scan of the abdomen pelvis without contrast does show mild hydronephrosis and hydroureter with a stone that looks like it is either in the bladder or perched at the tip of the ureter. Final reading is similar but they do note some changes that could be consistent with mild ileus and mild cystitis. Patient is rechecked. His symptoms were better. But his pain was starting to come back a little bit. Nausea was gone. His abdomen is actually flat nondistended and has good bowel sounds. Clinically this does not represent an ileus. I still think we should be able to get him home with meds for pain nausea and Flomax. If he develops fever, recurrent pain, vomiting or other concerns he should return. Lab Data Attestation: I reviewed the patient's lab results. Labs: Laboratory Results - last 24 hr 02/21/23 02/21/23 00:12 00:35 WBC 6.5 RBC 4.66 Hgb 14.1 Hct 41.0 MCV 88.0 MCH 30.3 MCHC 34.4 RDW Std Deviation 38.4 RDW Coeff of Ronit 12.0 Plt Count 214 MPV 9.5 Immature Gran % (Auto) 0.300 Neut % (Auto) 56.9 Lymph % (Auto) 32.0 [place] % (Auto) 7.7 Eos % (Auto) 2.3 Baso % (Auto) 0.8 Absolute Neuts (auto) 3.7 Absolute Lymphs (auto) 2.09 Nucleated RBC % 0 Sodium 141 Potassium 3.2 L Chloride 111 H Carbon Dioxide 25.0 Anion Gap 5 BUN 25 H Creatinine 1.54 H Estim Creat Clear Calc 57.94 Est GFR (MDRD) Af Amer 61 Est GFR (MDRD) Non-Af 51 L BUN/Creatinine Ratio 16.2 Glucose 151 H Calcium 8.6 Urine Color Yellow Urine Clarity Sl Cldy Urine pH 8.0 Ur Specific [place] 1.015 Urine Protein 15 H Urine Glucose (UA) Normal Urine Ketones Negative Urine Occult Blood Negative Urine Nitrite Negative Urine Bilirubin Negative Urine Urobilinogen Normal Ur Leukocyte Esterase Negative Urine RBC 0 SEEN Urine WBC 0 SEEN Ur Squamous Epith Cells 0 SEEN Amorphous Sediment 2+ Urine Bacteria 2+ Urine Mucus 0 SEEN Radiography Diagnostic Testing: Clinical Impression(s) from Imaging Studies Abdomen/Pelvis CT 02/21/23 00:20 IMPRESSION: Mild right hydronephrosis mild right hydroureter secondary to a recently passed stone into the right side of the bladder at the level of the ureterovesicular junction measuring approximately 2.5 mm. Mild ileus. Mild wall thickening of the bladder could consider cystitis. Postoperative change status post lower pelvic hernia repair. Electronically Signed: Shayna Moeller MD at 1:40 EST Reading Location ID and State: [facility] / [place] Tel , Service support , Discharge Plan Triage Chief Complaint: Flank Pain ED Provider: King Appiah Dx/Rx/DC Orders Clinical Impression: Nausea & vomiting, Kidney stone on right side, Dehydration Instructions: ED Kidney Stone w/ Colic Prescriptions: New oxycodone-acetaminophen [oxycodone-acetaminophen] 5-325 mg tablet 1 tab PO Q6H PRN PRN (Reason: Pain) 3 Days Qty: 12 0RF ondansetron [ondansetron] 4 mg tablet,disintegrating 4 mg PO Q8H PRN PRN (Reason: Nausea) Qty: 10 0RF tamsulosin [Flomax] 0.4 mg capsule 0.4 mg PO DAILY Qty: 7 0RF No Action omeprazole 40 mg capsule,delayed release(DR/EC) PO 90 Days Qty: 90 Patient Comments: TAKE 1 CAPSULE BY MOUTH ONCE DAILY. leucovorin calcium 15 mg tablet PO 90 Days Qty: 12 Patient Comments: 1 TABLET(S) PO ONCE A WEEK folic acid 1 mg tablet PO 90 Days Qty: 180 Patient Comments: sumatriptan succinate 100 mg tablet PO 9 Days Qty: 9 Patient Comments: TAKE 1 TABLET BY MOUTH NEEDED FOR MIGRAINE HEADACHE (SEE ADMINISTRATION INSTRUCTIONS). methotrexate sodium 25 mg/mL injection solution 25 mg/mL solution IM 28 Days Qty: 4 Patient Comments: 0.75 ML MILLILITER(S) INJ ONCE A WEEK DISPENSE 2 VIALS PER MONTH amitriptyline 50 mg tablet PO 30 Days Qty: 30 Patient Comments: TAKE 1 TABLET BY MOUTH DAILY AT BEDTIME. abatacept 125 mg/mL auto-injector SC 28 Days Qty: 4 Patient Comments: Primary Care Provider: Care Physician,No Primary Referrals: DUNCAN PETERS [Other] Yaya Johnson MD [Med Staff - Active Staff] - 3-5 Days Disposition Disposition: Home, Self Care
[2023-02-21 00:34] LABS: Absolute Lymphocyte Count 2.09 X10^3/uL (0.83-4.51); Absolute Neutrophil Count 3.7 X10^3/uL (2.0-7.7); Basophil# 0.05 X10^3/uL; Basophil% 0.8 % (0-1); Eosinophil# 0.15 X10^3/uL; Eosinophils% 2.3 % (0-5); Hemoglobin 14.1 g/dL (13.0-16.5); Lymphocyte # 2.09 X10^3/ul (0.83-4.51); Mean Corp Hgb Conc 34.4 g/dL (32-36); Mean Corpuscular Hgb 30.3 pg (27.0-32.0); Mean Platelet Vol. 9.5 fl (6.2-12.0); Monocyte% 7.7 % (0-10); NRBC Flagged by Analyzer 0 % (0-5); Neutrophil # 3.72 X10^3/uL (2.7-7.7); Neutrophil % 56.9 % (47-70); Platelet Count 214 K/mm3 (150-450); RBC Distribution Width SD 38.4 fl (35.1-43.9); Red Blood Count 4.66 M/mm3 (4.6-6.2); White Blood Count 6.5 K/mm3 (4.4-11.0)
[2023-02-21 00:40] LABS: Glucose, Dipstick Normal (Normal); Ketone-Dipstick Negative (Negative); Leukocyte Esterase-Dipstick Negative /ul (Negative); Mucous, Urine 0 SEEN /hpf (<or=2+); Nitrite-Dipstick Negative (Negative); Occult Blood-Urine Negative /ul (Negative); Protein-Dipstick 15 mg/dl (Negative); Red Blood Cells-Urine 0 SEEN /hpf (0-5); Specific Gravity, Urine 1.015 (1.002-1.030); Squamous Epithelial Cells - UA 0 SEEN /hpf (0-5); Urine Bilirubin Dipstick Negative (Negative); Urine Urobilinogen Normal (Normal); White Blood Cells 0 SEEN /hpf (0-5)
[2023-02-21] MEDS: Ondansetron 4 MG/2 ML Vial IV (00:41)
[2023-02-21] MEDS: 0.9% Normal Saline (1000mL) 1,000 ML 1000 ML IV (00:41)
[2023-02-21] MEDS: Ketorolac 15 MG/ML Vial IV (00:41)
[2023-02-21] MEDS: Morphine 4 MG/ML Syringe IV (00:42)
[2023-02-21 00:45] VITALS: BMI 26.1
[2023-02-21 00:48] LABS: Anion Gap 5 (5-15); BUN 25 mg/dL (7-18); BUN/Creat Ratio 16.2 RATIO (10-20); Calcium,Total 8.6 mg/dL (8.5-10.1); Chloride 111 mmol/L (98-107); Creatinine, Serum 1.54 mg/dL (0.70-1.30); EST Glomerular Filtration Rate 51 mL/min (>60); Est Glom Filt Rate - Afr Amer 61 mL/min (>60); Estimated Creatinine Clearance 57.94 ml/min; Glucose 151 mg/dL (74-106); Potassium 3.2 mmol/L (3.5-5.1); Sodium Level 141 mmol/L (136-145)
[2023-02-21 00:52] LABS: Color, Urine Yellow (Yellow)
[2023-02-21 00:53] LABS: Urine Clarity Sl Cldy (Clear)
[2023-02-21 00:59] LABS: Amorphous Sediment 2+; Bacteria 2+ /hpf (None Seen)
[2023-02-21] MEDS: HYDROmorphone 0.5 MG/0.5 ML SYRINGE IV (02:08)
[2023-02-21 02:42] VITALS: PULSE 70; RESP 18; O2SAT 97
== END 2023-02-21 02:45 | disposition home or self-care (01) ==
PROVIDERS: Emergency Provider Emergency Medicine; Visit Provider Emergency Medicine
DX: N13.2 Hydronephrosis with renal and ureteral calculous obstruction (principal); I10 Essential (primary) hypertension; R11.2 Nausea with vomiting, unspecified; G43.909 Migraine, unspecified, not intractable, without status migrainosus
CPT/HCPCS: 74176; 80048; 81001; 85025; 96361; 96374; 96375; 99282; J7030; A4216; J2405